=== PATIENT | female | born 1975 | race Caucasian/White ===

== ENCOUNTER 2023-04-06 12:40 | Outpatient (AMB) | payer OTHER, SELFPAY ==
[2023-04-06 13:00] VITALS: BP 130/82; PULSE 78; O2SAT 96; BMI 38.0
--- NOTE | 2023-04-06 13:00 | MHC.PC.OV ---
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 Past medical history significant for EVELIA. Patient reports for the past 3-4 weeks has been feeling a lot of anxiety,feels like she crawling out of her skin, 1 year ago had a panic attack. Patient has never taken medication for anxiety or seen therapist. Patient also states previously on Wellbutrin 150 mg daily for smoking sensation and she was able to quit smoking for 3 months, however she started smoking and when she was unable to get more this. Patient requesting to start back on Wellbutrin RX sent to patients pharmacy. Patient also reports that when she coughs, sneezes or walks quickly she will pee. Patient states had 3 vaginal deliveries. Patient advised to decrease caffeine consumption, recommended smoking cessation and weight loss. Patient states she had tried when she quit smoking for 3 months stop drinking caffeine and it did not help her symptoms. Pap smear: referral, women requested. Colonoscopy: GI referral entered Mammogram: overdue. Eye exam: 2 years ago. Previous patient Michael in [place]; 4 years ago. [facility] Medical History (Updated 04/06/23 @ 15:31 by AMAURI Sun) Iron deficiency anemia Surgical History (Updated 04/06/23 @ 13:15 by AMAURI Sun) Hx of cholecystectomy Family History (Updated 04/06/23 @ 13:18 by AMAURI Sun) Mother Blood clotting disorder Father Prostate cancer Brother No problems noted. Sister No problems noted. Social History Housing: Apartment Alcohol intake: current Alcohol intake frequency: a few times a week Alcohol type: hard liquor Patient Tobacco Use Status: Current everyday Tobacco user Cigarette Packs Per Day: 1 service: No Current occupational status: employed Cognitive needs: No Hearing needs: No Vision needs: No Questionnaire Thrive Questionnaire Date Thrive assessed: 04/06/23 I am a: Patient What is your living situation today?: I have a steady place to live Within the past 12 months, did the food you bought not last and you didn't have the money to get more?: Never true Within the past 12 months, did you worry whether your food would run out before you got money to buy more?: Never true Do you have trouble paying for medicines?: No Do you have trouble getting transportation to medical appointments?: No Do you have trouble paying your heating and electricity bill?: No Do you have trouble taking care of your child, family member or friend?: No Do you have trouble with day-to-day activities such as bathing, preparing meals, shopping, managing finances, etc.?: No Are you currently unemployed and looking for a job?: No Are you interested in more education?: No AUDIT C Alcohol Use Questionnaire (AUDIT-C) 1. How often do you have a drink containing alcohol?: 2-3 times a week 2. How many drinks containing alcohol do you have on a typical day when you are drinking?: 3 or 4 3. How often do you have six or more drinks on one occasion?: Never Total Score: 4 MATIAS-7 AMB Questionnaire MATIAS-7 Date MATIAS - 7 assessed: 04/06/23 Feeling nervous, anxious, or on edge: 1 = Several days Not being able to stop or control worryin = More than half the days Worrying too much about different things: 1 = Several days Trouble relaxin = More than half the days Being so restless that it is hard to sit still: 3 = Nearly every day Becoming easily annoyed or irritable: 0 = Not at all Feeling afraid as if something awful might happen: 0 = Not at all Total MATIAS-7 score (0-4 normal; 5-9 mild; 10-14 moderate; 15-21 severe): 9 Source: Developed by Drs. Hugo Robertson, Ashley Otero, Mark Conroy and colleagues, with an educational robert from [employer]. MATIAS-7 Assessment Billing MATIAS-7 Assessment Tool: MATIAS-7 Assessment 63476 Review of Systems Const Denies chills, Denies fatigue, Denies fever(s) and Denies poor appetite Eyes Denies no additional complaints ENT Reports Normal hearing present Card Denies chest pain, Denies syncope, Denies rapid heart rate and Denies dyspnea Resp Denies cough and Denies dyspnea GI Denies change in stool character, Denies constipation, Denies diarrhea, Denies nausea and Denies vomiting Denies urinary frequency, Denies dysuria and Denies urinary urgency Neuro Reports Normal hearing present, Denies confusion and Denies syncope Psych Denies confusion Endo Denies fatigue Physical exam (Primary Care) Vital Signs: Last Vital Signs Pulse 78 04/06/23 13:00 BP 130/82 04/06/23 13:00 Pulse Ox 96 04/06/23 13:00 Oxygen Delivery Method Room Air 04/06/23 13:00 BMI result Body Mass Index 38.0 Tobacco/Smoking Status: Tobacco use Status Tobacco use date assessed 04/06/23 04/06/23 13:07 Patient Tobacco Use Status Current everyday Tobacco 04/06/23 13:21 Thrive Assessment: Date of Thrive Assessment Date Thrive assessed 04/06/23 04/06/23 13:07 Const General: No confusion Orientation/consciousness: No confusion HENMT Head: Yes normocephalic and Yes atraumatic Ears: external ears normal and TM's normal bilaterally General nose exam: Normal external nose present and Normal nasal mucous membranes and turbinates present Face and sinus: Yes normal facial exam and Yes sinuses nontender Mouth: moist mucous membranes Throat: Yes tonsils normal Eyes Conjunctivae: conjunctivae normal Sclerae: sclerae normal Pupils: Equal, round and reactive pupils present and Pupils normal by confrontation EOM: EOMs intact bilaterally Direct Ophthalmoscopy: normal light reflex Neck Neck: Yes no lymphadenopathy and Yes supple Thyroid: Thyroid normal Chest Chest palpation & inspection: normal inspection of the chest Resp Effort & Inspection: normal respiratory effort Auscultation: clear to auscultation bilaterally, no crackles, no rhonchi and no wheezes Cardio Rate: regular rate Rhythm: regular rhythm Peripheral pulses: radial pulses present and dorsalis pedis present GI Inspection: Yes normal to inspection Palpation (GI): Soft to palpation, nontender and No hepatosplenomegaly present Auscultation: normoactive bowel sounds Skin General skin exam: no rashes or lesions noted Neuro General: No confusion Cranial nerves: Yes Equal, round and reactive pupils present and Yes Normal hearing present Cognition (Neuro): normal cognition Gait exam (Neuro): Normal gait present Motor exam (neuro): 5/5 motor strength present throughout Deep tendon reflexes (DTR's): Right brachioradialis reflex intensity grade: 2+, Left brachioradialis reflex intensity grade: 2+, Right patellar reflex intensity grade: 2+ and Left patellar reflex intensity grade: 2+ Extrem General: No edema Assessment and Plan Assessment & Plan (1) Stress incontinence: Code(s): N39.3 - Stress incontinence (female) (male) Plan: Referral entered to urology for further evaluation and treatment. Patient advised on quitting smoking, restricting caffeine intake and diet and exercise to promote weight loss. (2) Anxiety: Code(s): F41.9 - Anxiety disorder, unspecified Plan: Referral placed to counseling. (3) Cigarette smoker motivated to quit: Code(s): F17.210 - Nicotine dependence, cigarettes, uncomplicated Plan: Patient requesting to start back on Wellbutrin 150 mg q.a.m. that she had previously lb that was effective for her. Prescription sent to patient's pharmacy. (4) Iron deficiency anemia: Code(s): D50.9 - Iron deficiency anemia, unspecified Plan: CBC ordered to follow-up patient's history of anemia. (5) Obesity (BMI 30-39.9): Code(s): E66.9 - Obesity, unspecified Plan: Recommended exercise to reduce BMI. (6) Physical exam, annual: Code(s): Z00.00 - Encounter for general adult medical examination without abnormal findings Plan: Follow-up in 1 year for physical exam. Orders: Orders Comprehensive [place]. Panel Fast Today Z13.1 - Encounter for screening for diabetes mellitus Lipid Panel Today Z13.220 - Encounter for screening for lipoid disorders TSH reflex Free T4 Today Z13.29 - Encounter for screening for other suspected endocrine disorder Vitamin D 25-OH Total Today Z13.21 - Encounter for screening for nutritional disorder Complete Blood Count Auto Diff Today Z13.0 - Encounter for screening for diseases of the blood and blood-forming organs and certain disorders involving the immune mechanism Referrals Urology Referral N39.3 - Stress incontinence (female) (male) Counseling Referral F41.9 - Anxiety disorder, unspecified Gastroenterology Referral Z12.11 - Encounter for screening for malignant neoplasm of colon 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
== END 2023-04-06 13:57 | disposition home or self-care (01) ==
PROVIDERS: PCP Nurse Practitioner Family; Visit Provider Nurse Practitioner Family
DX: Z00.00 Encounter for general adult medical examination without abnormal findings (principal); N39.3 Stress incontinence (female) (male); F41.9 Anxiety disorder, unspecified; F17.210 Nicotine dependence, cigarettes, uncomplicated; D50.9 Iron deficiency anemia, unspecified; E66.9 Obesity, unspecified
CPT/HCPCS: 99386

== ENCOUNTER 2023-05-15 14:28 | Outpatient (AMB) | payer OTHER, SELFPAY ==
--- NOTE | 2023-05-15 14:35 | MHC.OFFVIS ---
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 Moffett. She presents to the office today as a new patient for stress urinary incontinence. In discussion with the patient today she reports to be doing and feeling well. She discusses noting worsening stress incontinence over the last few months. When asked she reports stress incontinence with increased activity, coughing, and or sneezing. She otherwise denies nocturia, hematuria, dysuria, foul smelling urine, changes to urinary stream, flank pain, fever, and or chills. In office urinalysis results reviewed with the patient today. Microscopic hematuria noted. In discussion with the patient today she does report 30 year cigarette smoking history. She reports attempting to quit smoking cigarettes earlier last year for approximately 3 months however continues to smoke. She denies any known chemical exposure. She reports smoking approximately 1 pack of cigarettes per day. She also endorses to drinking 1-2 cups of coffee daily. When asked she does report having past medical history of 3 vaginal births of average sized babies and somewhat long labors. Discussed at length potential causes for microscopic hematuria as well as stress incontinence. Discussed at length pelvic floor therapy with vaginal weights as well as further microscopic hematuria workup with cytology, CT urogram, and in office cystoscopy. PVR 49 mL's. [facility] Medical History Iron deficiency anemia Surgical History Hx of cholecystectomy Family History Mother Blood clotting disorder Father Prostate cancer Brother No problems noted. Sister No problems noted. Social History Housing: Apartment Alcohol intake: current Alcohol intake frequency: a few times a week Alcohol type: hard liquor Patient Tobacco Use Status: Current everyday Tobacco user Cigarette Packs Per Day: 1 service: No Current occupational status: employed Cognitive needs: No Hearing needs: No Vision needs: No Review of Systems Const All systems reviewed & are unremarkable except as noted in HPI and below Physical Exam Const General: cooperative, healthy appearing, comfortable, no acute distress, well developed, alert and awake Orientation/consciousness: patient oriented x3 Limitations: no limitations HEENT Head: Yes normal to inspection, Yes normocephalic and Yes atraumatic Ears: hearing grossly normal bilaterally Eyes General: appearance normal, both eyes and all related structures Neck Neck: Yes normal visual inspection and Yes trachea midline Chest Chest palpation & inspection: normal inspection of the chest Resp Effort & Inspection: normal respiratory effort and able to speak in complete sentences Cardio Rate: regular rate GI Inspection: Yes normal to inspection General: Yes no CVA tenderness Back/Spine/Pelvis Back: no CVA tenderness Skin General skin exam: no rashes or lesions noted Neuro General: patient oriented x3 Extrem General: Yes normal to inspection Psych Appearance: grossly normal and well kempt Mental Status: mental status grossly normal Speech and movement: Normal speech and movement present and Clear speech present Affect: normal affect Attitude: cooperative Thought process: Normal thought process present Thought content: Normal thought content present Insight: Good insight present (Psych) Judgement: Good judgement present (Psych) Office Procedures Post Void Residual Post Residual Void Post Void Residual (PVR): 49 [id number]-[id number] Void Residual by ultrasound Results AMB Urinalysis, Automated UA Leukoctes 0 Brando/uL Last Edit by Juan ManuelJeds [employer]be[employer] and [employer] Irving on 05/15/23 15:01 UA Nitrite Last Edit by Ashlie Irving on 05/15/23 15:01 UA Urobilinogen 0.2 mg/dL Last Edit by [employer] Irving on 05/15/23 15:01 UA Protein 0 mg/dL Last Edit by [employer] Irving on 05/15/23 15:01 UA pH 6.0 Last Edit by Ashlie Irving on 05/15/23 15:01 UA Blood 200 Navi/uL Last Edit by Ashlie Irving on 05/15/23 15:01 UA Specific Emblem 1.020 Last Edit by Juan ManuelJeds Barbeque and [employer] Irving on 05/15/23 15:01 UA Ketone Negative Last Edit by Ashlie Irving on 05/15/23 15:01 UA Bilirubin 0 mg/dL Last Edit by Ashlie Irving on 05/15/23 15:01 UA Glucose 0 mg/dL Last Edit by Ashlie Irving on 05/15/23 15:01 Results Reviewed Results Reviewed: Laboratory Last Values Urine pH (Auto) 6.0 05/15/23 14:56 Specific Emblem (Auto) 1.020 05/15/23 14:56 Urine Protein (Auto) 0 mg/dL 05/15/23 14:56 Glucose (UA)(Auto) 0 mg/dL 05/15/23 14:56 Urine Ketones (Auto) Negative 05/15/23 14:56 Urine Blood (Auto) 200 Navi/uL 05/15/23 14:56 Urine Bilirubin (Auto) 0 mg/dL 05/15/23 14:56 Urine Urobilinogen (Auto) 0.2 mg/dL 05/15/23 14:56 Leukocyte Esterase (Auto) 0 Brando/uL 05/15/23 14:56 Assessment & Plan Assessment & Plan (1) Microscopic hematuria: Code(s): R31.29 - Other microscopic hematuria (2) Nicotine dependence: Code(s): F17.200 - Nicotine dependence, unspecified, uncomplicated (3) Stress incontinence: Code(s): N39.3 - Stress incontinence (female) (male) Plan In office urinalysis results reviewed with the patient today; as noted above; will send for urine cytology. Discussed at length potential causes for stress incontinence as well as microscopic hematuria. Discussed obtaining CT urogram and in office cystoscopy for further assessment evaluation. CT urogram ordered. BUN and creatinine ordered for imaging. Patient discusses she will think about in office cystoscopy; however declines at this time. Discussed at length pelvic floor therapy and vaginal weights; information provided Information provided on microscopic hematuria and an office cystoscopy All questions were answered Discussed and stressed the importance of limiting/quitting smoking for overall health and well-being. Discussed importance of daily activity in weight management for improvement in stress incontinence as well as overall health and well-being. Follow-up in 4-6 weeks with imaging to be completed prior; or sooner with any issues, concerns, and or questions. Orders: Orders AMB Post Void Residual by ultrasound Today N39.3 - Stress incontinence (female) (male) Urine Cytology Today N39.3 - Stress incontinence (female) (male) AMB Urinalysis Automated Today Z13.9 - Encounter for screening, unspecified CT urogram Today R31.0 - Gross hematuria Blood Urea Nitrogen Today F17.200 - Nicotine dependence, unspecified, uncomplicated, R31.29 - Other microscopic hematuria Creatinine Today F17.200 - Nicotine dependence, unspecified, uncomplicated, R31.29 - Other microscopic hematuria Patient Instructions: The patient had an opportunity to ask questions regarding the treatment plan. All questions were answered. Physical exam, labs, and imaging were discussed and reviewed in detail. As well as risks, benefits, and discussion of treatment choices. No major barriers to understanding were identified. The patient expressed understanding and agreement with the above treatment plan. The patient was made aware they should contact our office by phone for worsening of their current condition, the appearance of new symptoms, or with any questions or concerns. Compliance is encouraged with any medications and follow up testing that is ordered. It is a privilege to be allowed the opportunity to participate in? your urological care.? Again, if you have any questions or concerns If you have any questions or concerns please do not hesitate to contact me. The office is [phone]. This note is constructed using voice recognition software. While every effort has been made to ensure accuracy rehabilitation services aide errors may have been included. Yours sincerely, AMAURI Fields-COREEN Coding Level of Care Code New Pt Level 3 (52334) Diagnoses Microscopic hematuria R31.29 Nicotine dependence F17.200 Stress incontinence N39.3 CPT Codes Post Residual Void - PVR CPT Code: 88722-Rcsm Void Residual by ultrasound ([id number])
== END 2023-05-15 15:40 | disposition home or self-care (01) ==
PROVIDERS: PCP Nurse Practitioner Family; Visit Provider Nurse Practitioner Family
DX: R31.29 Other microscopic hematuria (principal); F17.200 Nicotine dependence, unspecified, uncomplicated; N39.3 Stress incontinence (female) (male)
CPT/HCPCS: 99203

== ENCOUNTER 2023-05-15 14:28 | Outpatient (REF) | payer OTHER, SELFPAY ==
[2023-05-15 16:53] LABS: Urine Cytology See Pathology rpt
[2023-05-15 17:51] LABS: Blood Urea Nitrogen 7 mg/dL (9-16); Estimated Glomerular Filt Rate > 60
== END 2023-05-15 14:29 | disposition home or self-care (01) ==
LOC: HO.LNP 14:28
PROVIDERS: PCP Nurse Practitioner Family; Visit Provider Nurse Practitioner Family
DX: R31.29 Other microscopic hematuria (principal); N39.3 Stress incontinence (female) (male); F17.200 Nicotine dependence, unspecified, uncomplicated
CPT/HCPCS: 51798; 81003; 82565; 84520; 88112

== ENCOUNTER 2023-05-15 15:52 | Outpatient (REF) | payer OTHER, SELFPAY | END 2023-05-15 15:53 | disposition home or self-care (01) | LOC: HO.LAB 15:52 | PROVIDERS: PCP Nurse Practitioner Family; Visit Provider Nurse Practitioner Family | DX: Z13.89 Encounter for screening for other disorder (principal) ==

== ENCOUNTER 2023-06-02 07:24 | Outpatient (REF) | payer OTHER, SELFPAY ==
[2023-06-02 07:43] LABS: MANUAL DIFF FLAG NO
[2023-06-02 08:19] LABS: Basophils Absolute Auto 0.1 X10*3/uL (0.0-0.2); Basophils Percent Auto 0.9 % (0-2); Eosinophils Absolute Auto 0.3 X10*3/uL (0.0-0.4); Eosinophils Percent Auto 4.5 % (0-4); Hematocrit 41.7 % (37.0-47.0); Imm Gran Abs Auto 0.02 X10*3/uL (0.00-0.03); Imm Gran Pct Auto 0.3 % (0.0-0.4); Lymphocytes Absolute Auto 2.3 X10*3/uL (1.2-4.9); Lymphocytes Percent Auto 34.6 % (20-40); Mean Corpuscular HGB Conc 31.2 g/dl (31.0-35.0); Mean Corpuscular Hemoglobin 28.7 pg (27.0-33.0); Mean Corpuscular Volume 92.1 fL (80.0-98.0); Monocytes Absolute Auto 0.6 X10*3/uL (0.1-1.2); Monocytes Percent Auto 8.4 % (2-11); Neutrophils Absolute Auto 3.4 x10*3/uL (2.0-8.3); Neutrophils Percent Auto 51.3 % (45-73); Platelet Count 299 X10*3/uL (160-400); Red Blood Count 4.53 X10*6/uL (4.20-5.50); White Blood Count 6.7 X10*3/uL (4.8-10.8)
[2023-06-02 08:49] LABS: Alanine Aminotransferase 27 U/L (0-31); Albumin Level 3.9 g/dL (3.5-5.0); Alkaline Phosphatase 96 U/L (39-117); Anion Gap 15 (12-20); Aspartate Amino Transferase 22 U/L (5-31); Bilirubin Total 0.3 mg/dL (0.0-1.0); Blood Urea Nitrogen 9 mg/dL (9-16); Calcium 9.4 mg/dL (8.4-10.2); Carbon Dioxide 24 mmol/L (22-29); Chloride 106 mmol/L (96-108); Cholesterol 219 mg/dL (<200); Estimated Glomerular Filt Rate > 60; Glucose Fasting 107 mg/dL (60-99); HDL Cholesterol 54 mg/dL (>40); LDL Cholesterol Calculated 136 mg/dL (<100); Potassium 4.7 mmol/L (3.3-5.1); Sodium 140 mmol/L (135-145); Total Protein 7.2 g/dL (6.5-8.0); Triglycerides 147 mg/dL (<150)
[2023-06-02 09:04] LABS: TSH reflex Free T4 5.47 uIU/mL (0.32-4.0); Vitamin D 25-OH Total 25.7 ng/mL (>30)
[2023-06-02 09:44] LABS: Free T4 (Free Thyroxine) 0.83 ng/dL (0.71-1.85)
== END 2023-06-02 07:25 | disposition home or self-care (01) ==
LOC: HO.LAB 07:24
PROVIDERS: PCP Nurse Practitioner Family; Visit Provider Nurse Practitioner Family
DX: Z13.0 Encounter for screening for diseases of the blood and blood-forming organs and certain disorders involving the immune mechanism (principal); Z13.29 Encounter for screening for other suspected endocrine disorder; Z13.21 Encounter for screening for nutritional disorder; Z13.220 Encounter for screening for lipoid disorders; E78.49 Other hyperlipidemia; R94.6 Abnormal results of thyroid function studies; D50.9 Iron deficiency anemia, unspecified
CPT/HCPCS: 36415; 80053; 80061; 82306; 84439; 84443; 85025

== ENCOUNTER 2023-06-13 14:56 | Outpatient (REF) | payer OTHER, SELFPAY ==
--- NOTE | ~2023-06-13 | CT_ITS ---
EXAMINATION: CT UROGRAM WITHOUT AND WITH CONTRAST CLINICAL INFORMATION: Gross hematuria. COMPARISON: No pertinent prior examinations are available for comparison. TECHNIQUE: Noncontrast helical scanning was performed with submillimeter collimation through the abdomen and pelvis. Postcontrast helical scanning was then repeated with submillimeter collimation through the abdomen and pelvis in the pyelographic/urographic phase using split dose technique with 100 mL of Omnipaque 350 intravenous contrast. Sagittal and coronal 2-D reconstructions were obtained. This CT examination was performed using dose optimization techniques as appropriate, variously including the following: *Automated exposure control *Adjustment of mA and/or kV according to patient size (this includes techniques or standardized protocols for targeted exams where dose is matched to indication/reason for exam; i.e. extremities or head) *Use of iterative reconstruction technique DLP: 1173.87 mGy-cm mGycm FINDINGS: KIDNEYS, URETERS, BLADDER: Specific attention was given to the kidneys, ureters, and bladder. The right kidney measures 10.0 cm in size and the left kidney measures 10.9 cm in size. NONCONTRAST: No nephrolithiasis. No ureterolithiasis POSTCONTRAST NEPHROGRAPHIC/UROGRAPHIC: Symmetric nephrograms. No renal mass. Symmetric urinary excretion. No filling defects in the collecting systems or ureters. BLADDER: No bladder calculus. No discrete bladder mass. PELVIC VISCERA: The uterus appears bulky which may relate to underlying fibroid disease. Physiologic cysts are seen in the ovaries. No follow-up imaging is recommended. Nabothian cyst in the cervix. OTHER: LUNG BASES: The visualized lung bases are unremarkable. LIVER, GALLBLADDER, AND BILIARY TREE: Mild hepatic steatosis. No discrete liver mass or ductal dilatation. Cholecystectomy. PANCREAS: No discrete pancreatic mass or pancreatic ductal dilatation. SPLEEN: Normal size spleen. ADRENAL GLANDS: No adrenal mass. GASTROINTESTINAL TRACT: The small and large bowel are normal in caliber. No mesenteric mass or fluid. The appendix appears normal. There is mild colonic diverticulosis in the sigmoid area no evidence of diverticulitis. ABDOMINAL WALL: No significant hernia is appreciated. LYMPH NODES: No lymphadenopathy. VASCULAR: No aortic aneurysm. OSSEOUS STRUCTURES: No suspicious osseous lesions. CT/CT urogram IMPRESSION: No explanation for hematuria. No nephrolithiasis or renal mass. Normal CT urogram. Hepatic steatosis. Mild sigmoid diverticulosis without diverticulitis. Bulky uterus suggesting underlying fibroids.
== END 2023-06-13 14:57 | disposition home or self-care (01) ==
LOC: HO.CT 14:56
PROVIDERS: PCP Nurse Practitioner Family; Visit Provider Nurse Practitioner Family
DX: R31.0 Gross hematuria (principal)
CPT/HCPCS: 74178; Q9967

== ENCOUNTER 2023-06-22 15:31 | Outpatient (AMB) | payer OTHER, SELFPAY ==
--- NOTE | 2023-06-22 15:33 | MHC.OFFVIS ---
Intake Vital Signs 06/22/23 15:34 Height 5 ft 2 in Weight 211 lb 10.3 oz BMI 38.7 BP 133/73 Blood Pressure Location Lt brachial Position Sitting Pulse 71 Intake Visit Reasons: Colonoscopy Screening Intake Note: Patient presents to in office visit today as a new patient for colonoscopy screening. CC: Patient reports doing well, denies having any GI symptoms. 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 She is referred by Anali Moffett of [facility] primary care. PMX Smoker - quit 1 mos ago Iron deficiency anemia Obesity Anxiety Stress incontinence Microscopic hematuria * SURGICAL HISTORY Cholecystectomy * ALLERGIES: NKDA * [facility] LABS: Laboratory Tests 06/02/23 07:42 WBC 6.7 Hgb 13.0 Hct 41.7 Plt Count 299 Estimated GFR > 60 Total Bilirubin 0.3 AST 22 ALT 27 Alkaline Phosphata se 96 TSH 5.47 H Free T4 0.83 TODAY'S VISIT This is her first colonoscopy. She denies any bowel or upper GI problems. She denies any cardiac or respiratory problems. There are no prior problems with anesthesia or sedation. No ID problems. There is no known FHX or crc or polyps, but her family does not talk about these things. [facility], [facility] Medical History Iron deficiency anemia Surgical History Hx of cholecystectomy Family History Mother Blood clotting disorder Breast cancer Father Prostate cancer Brother No problems noted. Sister No problems noted. Social History Housing: Apartment Alcohol intake: current Alcohol intake frequency: a few times a week Alcohol type: hard liquor Patient Tobacco Use Status: Former Tobacco user Cigarette Packs Per Day: 1 Non Cigarette Tobacco use how lon years Non Cigarette Tobacco use Quit date or years: quit about 2 months ago per PT service: No Current occupational status: employed Cognitive needs: No Hearing needs: No Vision needs: No Review of Systems Const Denies fatigue, Denies fever(s), Denies night sweats, Denies poor appetite and Denies weight loss ENT Reports Normal hearing present, Denies dental pain, Denies dysphagia, Denies hearing loss, Denies mouth pain, Denies odynophagia, Denies throat swelling, Denies tongue swelling and Reports other (Dentition adequate) Card Reports no additional complaints Resp Reports no additional complaints GI Denies abdominal pain, Denies melena, Denies bloating, Denies hematochezia, Denies constipation, Denies GI cramping, Denies dysphagia, Denies excessive flatus, Denies early satiety, Denies heartburn, Denies diarrhea, Denies nausea, Denies odynophagia, Denies vomiting and Denies hematemesis Skin/Breast Denies pruritus, Denies lesions, Denies rash and Denies jaundice Neuro Reports Normal hearing present and Denies Abnormal speech present Endo Denies fatigue Aller/Immun Denies throat swelling and Denies tongue swelling Physical Exam Vital Signs: Last Vital Signs Pulse 71 06/22/23 15:34 BP 133/73 06/22/23 15:34 BMI result Body Mass Index 38.7 Const General: cooperative, no acute distress, well developed and well groomed Nutritional Appearance: well nourished and obese morbidly obese Orientation/consciousness: oriented to person, oriented to place and oriented to time Limitations: No language barrier HEENT Head: Yes normocephalic and Yes atraumatic Eyes General: appearance normal, both eyes and all related structures Pupils: Equal, round and reactive pupils present Neck Neck: Yes normal visual inspection and Yes no lymphadenopathy Thyroid: Thyroid normal Resp Effort & Inspection: normal respiratory effort and able to speak in complete sentences Auscultation: clear to auscultation bilaterally Cardio Rate: regular rate Rhythm: regular rhythm Heart sounds: Normal, physiologic split S2 sound present Peripheral pulses: radial pulses present and posterior tibial pulses present GI Inspection: No distended, Yes Abdominal panniculus present and Yes obesity Palpation (GI): Soft to palpation, nontender, no guarding, not rigid and No hepatosplenomegaly present Percussion: Yes normal to percussion Auscultation: normal bowel sounds Rectal Exam - Female: deferred Skin General skin exam: no rashes or lesions noted, turgor normal, skin not dry, no jaundice, No spider nevi and no striae Rashes: no rashes Nails: normal Neuro General: oriented to person, oriented to place and oriented to time Cranial nerves: Yes Equal, round and reactive pupils present and Yes Normal hearing present Speech: No Abnormal speech present Extrem General: Yes normal to inspection, No clubbing, No cyanosis and No edema Psych Appearance: grossly normal and well kempt Mental Status: mental status grossly normal Speech and movement: Normal speech and movement present Affect: normal affect Attitude: cooperative Thought process: Normal thought process present and not confabulating Thought content: Normal thought content present Insight: Fair insight present (Psych) Judgement: Fair judgement present (Psych) Assessment & Plan Assessment & Plan (1) Pre-op examination: Code(s): Z01.818 - Encounter for other preprocedural examination Plan: This is her first colonoscopy. She denies any bowel or upper GI problems. She denies any cardiac or respiratory problems. There are no prior problems with anesthesia or sedation. No ID problems. There is no known FHX or crc or polyps, but her family does not talk about these things. Orders: Orders Colonoscopy - GI Use Only Today Z01.818 - Encounter for other preprocedural examination Medications: New peg 3350-electrolytes 236-22.74-6.74 -5.86 gram (Golytely) until fecal effluent is clear; do not exceed a total volume of 2,000 mL 240 mL PO Q10M 1 day 4,000 mL 0RF Z12.11 - Encounter for screening for malignant neoplasm of colon Coding Level of Care Code New Pt Level 3 (29137) Diagnoses Pre-op examination Z01.818
[2023-06-22 15:34] VITALS: BP 133/73; PULSE 71; BMI 38.7
== END 2023-06-22 16:09 | disposition home or self-care (01) ==
PROVIDERS: PCP Nurse Practitioner Family; Visit Provider Nurse Practitioner
DX: Z01.818 Encounter for other preprocedural examination (principal)
CPT/HCPCS: 99203

== ENCOUNTER → 2023-06-22 15:31 | Outpatient (BNVA) | payer OTHER, SELFPAY | PROVIDERS: PCP Nurse Practitioner Family; Visit Provider Nurse Practitioner ==

== ENCOUNTER 2023-06-26 15:29 | Outpatient (AMB) | payer OTHER, SELFPAY ==
--- NOTE | 2023-06-26 15:32 | MHC.OFFVIS ---
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 Moffett. She presents to the office today for a follow up. Of note, patient was seen approximately 6 weeks ago as a new patient for stress urinary incontinence at which time she was noted to have microscopic hematuria and reported a longstanding history of nicotine dependence therefore CT urogram was ordered for further assessment evaluation. These results reviewed with the patient today. Symmetric nephrograms. No renal mass. Symmetric urinary excretion. No filling defects in the collecting systems or ureters. The bladder with no bladder calculus or discrete bladder mass. No explanation for hematuria. No nephrolithiasis or renal mass. Normal CT urogram. In discussion with the patient today she reports to be doing and feeling well. She discusses noting worsening stress incontinence over the last few months. When asked she reports stress incontinence with increased activity, coughing, and or sneezing. She otherwise denies nocturia, hematuria, dysuria, foul smelling urine, changes to urinary stream, flank pain, fever, and or chills. She discusses since her last office visit here she has since stopped smoking cigarettes, marijuana, and drinking alcohol. Discussed at length in office cystoscopy for completion of microscopic hematuria workup however patient declines at this time. Discussed at length potential causes for lower urinary tract symptoms patient is experiencing. She has a history of 3 vaginal births of average sized babies and somewhat long labors. Discussed at length potential causes for microscopic hematuria as well as stress incontinence. Discussed at length pelvic floor therapy with vaginal weights. Patient reports since her last office visit here approximately 6 weeks ago she has been attending/performing yoga and walking regularly as she has felt she has had more energy to do things to take care of herself. In office urinalysis results reviewed with the patient today. PVR 6 mL. PFSH Medical History Iron deficiency anemia Surgical History Hx of cholecystectomy Family History Mother Blood clotting disorder Breast cancer Father Prostate cancer Brother No problems noted. Sister No problems noted. Social History Housing: Apartment Alcohol intake: current Alcohol intake frequency: a few times a week Alcohol type: hard liquor Patient Tobacco Use Status: Former Tobacco user Cigarette Packs Per Day: 1 service: No Current occupational status: employed Cognitive needs: No Hearing needs: No Vision needs: No Review of Systems Const All systems reviewed & are unremarkable except as noted in HPI and below Physical Exam Const General: cooperative, healthy appearing, comfortable, no acute distress, well developed, alert and awake Orientation/consciousness: patient oriented x3 Limitations: no limitations HEENT Head: Yes normal to inspection, Yes normocephalic and Yes atraumatic Ears: hearing grossly normal bilaterally Eyes General: appearance normal, both eyes and all related structures Neck Neck: Yes normal visual inspection and Yes trachea midline Chest Chest palpation & inspection: normal inspection of the chest Resp Effort & Inspection: normal respiratory effort and able to speak in complete sentences Cardio Rate: regular rate GI Inspection: Yes normal to inspection General: Yes no CVA tenderness Back/Spine/Pelvis Back: no CVA tenderness Skin General skin exam: no rashes or lesions noted Neuro General: patient oriented x3 Extrem General: Yes normal to inspection Psych Appearance: grossly normal and well kempt Mental Status: mental status grossly normal Speech and movement: Normal speech and movement present and Clear speech present Affect: normal affect Attitude: cooperative Thought process: Normal thought process present Thought content: Normal thought content present Insight: Good insight present (Psych) Judgement: Good judgement present (Psych) Office Procedures Post Void Residual Post Residual Void Post Void Residual (PVR): [id number] Void Residual by ultrasound Results AMB Urinalysis, Automated UA Leukoctes 0 Brando/uL Last Edit by Ashlie Irving on 06/26/23 16:09 UA Nitrite Negative Last Edit by Ashlie Irving on 06/26/23 16:09 UA Urobilinogen 0.2 mg/dL Last Edit by Ashlie Irving on 06/26/23 16:09 UA Protein 0 mg/dL Last Edit by Ashlie Irving on 06/26/23 16:09 UA pH 6.0 Last Edit by Ashlie Irving on 06/26/23 16:09 UA Blood 10 Navi/uL Last Edit by Ashlie Irving on 06/26/23 16:09 UA Specific [place] 1.010 Last Edit by Ashlie Irving on 06/26/23 16:09 UA Ketone Negative Last Edit by Ashlie Irving on 06/26/23 16:09 UA Bilirubin 0 mg/dL Last Edit by Ashlie Irving on 06/26/23 16:09 UA Glucose 0 mg/dL Last Edit by Ashlie Irving on 06/26/23 16:09 Results Reviewed Results Reviewed: Laboratory Last Values Urine pH (Auto) 6.0 06/26/23 15:34 Specific [place] (Auto) 1.010 06/26/23 15:34 Urine Protein (Auto) 0 mg/dL 06/26/23 15:34 Glucose (UA)(Auto) 0 mg/dL 06/26/23 15:34 Urine Ketones (Auto) Negative 06/26/23 15:34 Urine Blood (Auto) 10 Navi/uL 06/26/23 15:34 Urine Nitrite (Auto) Negative 06/26/23 15:34 Urine Bilirubin (Auto) 0 mg/dL 06/26/23 15:34 Urine Urobilinogen (Auto) 0.2 mg/dL 06/26/23 15:34 Leukocyte Esterase (Auto) 0 Brando/uL 06/26/23 15:34 Date of Service: 06/13/23 EXAMINATION: CT UROGRAM WITHOUT AND WITH CONTRAST FINDINGS: KIDNEYS, URETERS, BLADDER: Specific attention was given to the kidneys, ureters, and bladder. The right kidney measures 10.0 cm in size and the left kidney measures 10.9 cm in size. NONCONTRAST: No nephrolithiasis. No ureterolithiasis POSTCONTRAST NEPHROGRAPHIC/UROGRAPHIC: Symmetric nephrograms. No renal mass. Symmetric urinary excretion. No filling defects in the collecting systems or ureters. BLADDER: No bladder calculus. No discrete bladder mass. PELVIC VISCERA: The uterus appears bulky which may relate to underlying fibroid disease. Physiologic cysts are seen in the ovaries. No follow-up imaging is recommended. Nabothian cyst in the cervix. OTHER: LUNG BASES: The visualized lung bases are unremarkable. LIVER, GALLBLADDER, AND BILIARY TREE: Mild hepatic steatosis. No discrete liver mass or ductal dilatation. Cholecystectomy. PANCREAS: No discrete pancreatic mass or pancreatic ductal dilatation. SPLEEN: Normal size spleen. ADRENAL GLANDS: No adrenal mass. GASTROINTESTINAL TRACT: The small and large bowel are normal in caliber. No mesenteric mass or fluid. The appendix appears normal. There is mild colonic diverticulosis in the sigmoid area no evidence of diverticulitis. ABDOMINAL WALL: No significant hernia is appreciated. LYMPH NODES: No lymphadenopathy. VASCULAR: No aortic aneurysm. OSSEOUS STRUCTURES: No suspicious osseous lesions. IMPRESSION: No explanation for hematuria. No nephrolithiasis or renal mass. Normal CT urogram. Hepatic steatosis. Mild sigmoid diverticulosis without diverticulitis. Bulky uterus suggesting underlying fibroids. Assessment & Plan Assessment & Plan (1) Microscopic hematuria: Code(s): R31.29 - Other microscopic hematuria (2) Stress incontinence: Code(s): N39.3 - Stress incontinence (female) (male) (3) Nicotine dependence: Code(s): F17.200 - Nicotine dependence, unspecified, uncomplicated Plan In office urinalysis results reviewed with the patient today; will send for urine cytology PVR 6 mL Patient reports she has since stopped smoking cigarettes; encouragement and reassurance provided Recent CT results reviewed with the patient today; as noted above. Discussed in office cystoscopy for further workup of microscopic hematuria however patient declines at this time. Discussed at length potential causes for microscopic hematuria as well as lower urinary tract symptoms patient is experiencing. Continue pelvic floor exercises as discussed. Start oxybutynin as discussed and prescribed. Discussed, educated, encouraged on the importance of drinking plenty of water daily. Discussed possible near future urodynamics for further assessment evaluation Follow-up in 6 weeks with PVR; or sooner with any issues, concerns, and or questions. Orders: Orders Urine Cytology Today R31.29 - Other microscopic hematuria AMB Urinalysis Automated Today Z13.9 - Encounter for screening, unspecified AMB Post Void Residual by ultrasound Today N39.3 - Stress incontinence (female) (male) Medications: New oxybutynin chloride ER 10 mg PO DAILY 30 days 30 tabs 1RF N32.81 - Overactive bladder Patient Instructions: The patient had an opportunity to ask questions regarding the treatment plan. All questions were answered. Physical exam, labs, and imaging were discussed and reviewed in detail. As well as risks, benefits, and discussion of treatment choices. No major barriers to understanding were identified. The patient expressed understanding and agreement with the above treatment plan. The patient was made aware they should contact our office by phone for worsening of their current condition, the appearance of new symptoms, or with any questions or concerns. Compliance is encouraged with any medications and follow up testing that is ordered. It is a privilege to be allowed the opportunity to participate in? your urological care.? Again, if you have any questions or concerns If you have any questions or concerns please do not hesitate to contact me. The office is [phone]. This note is constructed using voice recognition software. While every effort has been made to ensure accuracy torch straightener and heater errors may have been included. Yours sincerely, THAO Fields Coding Level of Care Code Est Pt Level 4 (82108) Diagnoses Microscopic hematuria R31.29 Stress incontinence N39.3 Nicotine dependence F17.200 CPT Codes Post Residual Void - PVR CPT Code: 36310-Tbkk Void Residual by ultrasound ([id number])
== END 2023-06-26 16:30 ==
PROVIDERS: PCP Nurse Practitioner Family; Visit Provider Nurse Practitioner Family
DX: R31.29 Other microscopic hematuria (principal); N39.3 Stress incontinence (female) (male); F17.200 Nicotine dependence, unspecified, uncomplicated
CPT/HCPCS: 99214

== ENCOUNTER 2023-06-26 15:29 | Outpatient (REF) | payer OTHER, SELFPAY ==
[2023-06-26 17:10] LABS: Urine Cytology See Pathology rpt
== END 2023-06-26 15:30 | disposition home or self-care (01) ==
LOC: HO.LNP 15:29
PROVIDERS: PCP Nurse Practitioner Family; Visit Provider Nurse Practitioner Family
DX: R31.29 Other microscopic hematuria (principal)
CPT/HCPCS: 51798; 81003; 88112

== ENCOUNTER 2023-08-07 13:26 | Outpatient (AMB) | payer OTHER, SELFPAY ==
--- NOTE | 2023-08-07 13:29 | A.OFFVIS_ITS ---
Intake Intake Visit Reasons: 6w/PVR Intake Note: Patient presents for follow up visit for stress incontinence Urology Medications: oxybutynin Blood Thinner: none PVR: 0ml's Human Resources Representative Required: No Accompanied by: Self / Same As Patient Allergies No Known Allergies Allergy (Verified 08/08/23 01:14) Medication List - Last Reconciled 08/08/23 by AMAURI Fields- bupropion HCl (Wellbutrin SR) 150 mg PO QAM mirabegron ER (Myrbetriq) 25 mg PO DAILY 30 days peg 3350-electrolytes 236-22.74-6.74 -5.86 gram (Golytely) 240 mL PO Q10M 1 day HPI HPI Comments History of Present Illness Details Maria C is a very pleasant 48-year-old female patient of Dr. Moffett. She presents to the office today for a follow up. Of note, patient was seen approximately 6 weeks ago at which time she was started on 10 mg of oxybutynin for lower urinary tract symptoms. She also has a history of microscopic hematuria at which time a CT urogram was ordered and recommendations were made for in office cystoscopy given longstanding history of nicotine dependence however patient declines. CT noted symmetric nephrograms. No renal mass. Symmetric urinary excretion. No filling defects in the collecting systems or ureters. The bladder with no bladder calculus or discrete bladder mass. No explanation for hematuria. No nephrolithiasis or renal mass. Normal CT urogram. In discussion with the patient today she reports to be doing and feeling well. She mild improvement lower urinary tract symptoms on 10 mg of oxybutynin however felt it also made her constipated. She reports to have started lifestyle modifications and has quit smoking over the last 3 months and is working out. She discusses her recent divorce. When asked she reports stress incontinence with increased activity, coughing, and or sneezing. She otherwise denies nocturia, hematuria, dysuria, foul smelling urine, changes to urinary stream, flank pain, fever, and or chills. Discussed at length in office cystoscopy for completion of microscopic hematuria workup however patient declines at this time. Discussed at length potential causes for lower urinary tract symptoms patient is experiencing. She has a history of 3 vaginal births of average sized babies and somewhat long labors. Discussed at length potential causes for microscopic hematuria as well as stress incontinence. Discussed at length pelvic floor therapy with vaginal weights. In office urinalysis results reviewed with the patient today. PVR 0ml's PFSH Medical History Iron deficiency anemia Surgical History Hx of cholecystectomy Family History Mother Blood clotting disorder Breast cancer Father Prostate cancer Brother No problems noted. Sister No problems noted. Social History Housing: Apartment Alcohol intake: current Alcohol intake frequency: a few times a week Alcohol type: hard liquor Patient Tobacco Use Status: Former Tobacco user Cigarette Packs Per Day: 1 service: No Current occupational status: employed Cognitive needs: No Hearing needs: No Vision needs: No Review of Systems Const All systems reviewed & are unremarkable except as noted in HPI and below Physical Exam Const General: cooperative, healthy appearing, comfortable, no acute distress, well developed, alert and awake Orientation/consciousness: patient oriented x3 Limitations: no limitations HEENT Head: Yes normal to inspection, Yes normocephalic and Yes atraumatic Ears: hearing grossly normal bilaterally Eyes General: appearance normal, both eyes and all related structures Neck Neck: Yes normal visual inspection and Yes trachea midline Chest Chest palpation & inspection: normal inspection of the chest Resp Effort & Inspection: normal respiratory effort and able to speak in complete sentences Cardio Rate: regular rate GI Inspection: Yes normal to inspection General: Yes no CVA tenderness Back/Spine/Pelvis Back: no CVA tenderness Skin General skin exam: no rashes or lesions noted Neuro General: patient oriented x3 Extrem General: Yes normal to inspection Psych Appearance: grossly normal and well kempt Mental Status: mental status grossly normal Speech and movement: Normal speech and movement present and Clear speech present Affect: normal affect Attitude: cooperative Thought process: Normal thought process present Thought content: Normal thought content present Insight: Good insight present (Psych) Judgement: Good judgement present (Psych) Results AMB Urinalysis, Automated UA Leukoctes 0 Brando/uL Last Edit by Ashlie Irving on 08/07/23 14:25 UA Nitrite Negative Last Edit by Ashlie Irving on 08/07/23 14:25 UA Urobilinogen 0.2 mg/dL Last Edit by Ashlie Irving on 08/07/23 14:25 UA Protein 0 mg/dL Last Edit by Ashlie Irving on 08/07/23 14:25 UA pH 5.5 Last Edit by Ashlie Irving on 08/07/23 14:25 UA Blood 25 Navi/uL Last Edit by Ashlie Irving on 08/07/23 14:25 UA Specific [place] 1.015 Last Edit by Ashlie Irving on 08/07/23 14:25 UA Ketone Negative Last Edit by Ashlie Irving on 08/07/23 14:25 UA Bilirubin 0 mg/dL Last Edit by Ashlie Irving on 08/07/23 14:25 UA Glucose 0 mg/dL Last Edit by Ashlie Irving on 08/07/23 14:25 Results Reviewed Results Reviewed: Laboratory Last Values Urine pH (Auto) 5.5 08/07/23 13:33 Specific [place] (Auto) 1.015 08/07/23 13:33 Urine Protein (Auto) 0 mg/dL 08/07/23 13:33 Glucose (UA)(Auto) 0 mg/dL 08/07/23 13:33 Urine Ketones (Auto) Negative 08/07/23 13:33 Urine Blood (Auto) 25 Navi/uL 08/07/23 13:33 Urine Nitrite (Auto) Negative 08/07/23 13:33 Urine Bilirubin (Auto) 0 mg/dL 08/07/23 13:33 Urine Urobilinogen (Auto) 0.2 mg/dL 08/07/23 13:33 Leukocyte Esterase (Auto) 0 Brando/uL 08/07/23 13:33 Assessment & Plan Assessment & Plan (1) Stress incontinence: Code(s): N39.3 - Stress incontinence (female) (male) (2) Microscopic hematuria: Code(s): R31.29 - Other microscopic hematuria (3) Nicotine dependence: Code(s): F17.200 - Nicotine dependence, unspecified, uncomplicated Plan In office urinalysis results reviewed with the patient today; as noted above PVR 0mL Stop oxybutynin as discussed. Start Myrbetriq as discussed and prescribed. Patient reports being smoke free for over 3 months now; encouragement and reassurance provided Discussed in office cystoscopy for further workup of microscopic hematuria however patient declines at this time. Discussed at length potential causes for microscopic hematuria as well as lower urinary tract symptoms patient is experiencing. Continue pelvic floor exercises as discussed. Discussed, educated, encouraged on the importance of drinking plenty of water daily. Discussed possible near future urodynamics for further assessment evaluation Follow-up in 6 weeks with PVR; or sooner with any issues, concerns, and or questions. Orders: Orders AMB Urinalysis Automated 08/07/23 Z13.9 - Encounter for screening, unspecified Medications: New mirabegron ER (Myrbetriq) 25 mg PO DAILY 30 tabs 1RF 30 days N30.10 - Interstitial cystitis (chronic) without hematuria, N32.81 - Overactive bladder, R35.1 - Nocturia, R39.15 - Urgency of urination Discontinued oxybutynin chloride ER Discontinued Reason: Doctor's Order 10 mg PO DAILY 30 tabs 1RF 30 days N32.81 - Overactive bladder Patient Instructions: The patient had an opportunity to ask questions regarding the treatment plan. All questions were answered. Physical exam, labs, and imaging were discussed and reviewed in detail. As well as risks, benefits, and discussion of treatment choices. No major barriers to understanding were identified. The patient expressed understanding and agreement with the above treatment plan. The patient was made aware they should contact our office by phone for worsening of their current condition, the appearance of new symptoms, or with any questions or concerns. Compliance is encouraged with any medications and follow up testing that is ordered. It is a privilege to be allowed the opportunity to participate in? your urological care.? Again, if you have any questions or concerns If you have any questions or concerns please do not hesitate to contact me. The office is [phone]. This note is constructed using voice recognition software. While every effort has been made to ensure accuracy measurement specialist errors may have been included. Yours sincerely, THAO Fields Coding Level of Care Code Est Pt Level 4 (10460) Diagnoses Stress incontinence N39.3 Microscopic hematuria R31.29 Nicotine dependence F17.200
== END 2023-08-07 14:18 | disposition home or self-care (01) ==
PROVIDERS: PCP Nurse Practitioner Family; Visit Provider Nurse Practitioner Family
DX: N39.3 Stress incontinence (female) (male) (principal); R31.29 Other microscopic hematuria; F17.200 Nicotine dependence, unspecified, uncomplicated
CPT/HCPCS: 99214

== ENCOUNTER → 2023-08-07 13:26 | Outpatient (BNVA) | payer OTHER, SELFPAY | PROVIDERS: PCP Nurse Practitioner Family; Visit Provider Nurse Practitioner Family | DX: R31.29 Other microscopic hematuria (principal); N39.3 Stress incontinence (female) (male); Z87.891 Personal history of nicotine dependence | CPT/HCPCS: 81003 ==

== ENCOUNTER 2023-08-14 14:17 | Outpatient (AMB) | payer OTHER, SELFPAY ==
[2023-08-14 14:19] VITALS: BP 118/80; PULSE 79; O2SAT 99; BMI 37.0
--- NOTE | 2023-08-14 14:19 | A.OFFPC_ITS ---
Vital Signs 08/14/23 14:19 Height 5 ft 2 in Weight 202 lb 6 oz BMI 37.0 BP 118/80 Blood Pressure Location Lt brachial Position Sitting Pulse 79 Pulse Source Pulse Oximeter Pulse Oximetry (%) 99 Oxygen Delivery Method Room Air Intake Visit Reasons: anxiety smoking cessation Neurology Director Required: No Accompanied by: Self / Same As Patient Allergies No Known Allergies Allergy (Verified 08/14/23 14:23) Tobacco use date assessed: 04/06/23 Dental Screening Dental Screen Date: 08/14/23 Did you have a dental visit in the last 12 months?: No Did you have a dental problem in the last 6 months where you did not have access to dental care?: No Was dental information given to patient?: Patient has dentist HPI HPI Comments History of Present Illness Details 48-year-old female, Past medical history significant for EVELIA, Anxiety and smoker. Patient presents today for follow up appointment. Patient was previously started on Wellbutrin for smoking cessation. Patient reports has not smoked in 3 months and she feels her anxiety has improved on the medication, requesting refill. Rx Sent. Patient reports has been diet and exercising and has lost 8lbs. Patient following with urology for stress incontinence and was started on mybetriq for this. Patient reminded to get previously ordered fasting glucose completed. [facility]LY [facility] Medical History Iron deficiency anemia Surgical History Hx of cholecystectomy Family History Mother Blood clotting disorder Breast cancer Father Prostate cancer Brother No problems noted. Sister No problems noted. Social History Housing: Apartment Alcohol intake: current Alcohol intake frequency: a few times a week Alcohol type: hard liquor Patient Tobacco Use Status: Former Tobacco user Cigarette Packs Per Day: 1 service: No Current occupational status: employed Cognitive needs: No Hearing needs: No Vision needs: No Questionnaire PHQ-9 Over the last 2 weeks, how often have you been bothered by any of the following problems? 1. Little interest or pleasure in doing things: not at all 2. Feeling down, depressed, or hopeless: not at all 3. Trouble falling or staying asleep, or sleeping too much: not at all 4. Feeling tired or having little energy: not at all 5. Poor appetite or overeating: not at all 6. Feeling bad about yourself - or that you are a failure or have let yourself or your family down: not at all 7. Trouble concentrating on things, such as reading the newspaper or watching television: not at all 8. Moving or speaking so slowly that other people could have noticed. Or the opposite - being so fidgety or restless that you have been moving around a lot more than usual: not at all 9. Thoughts that you would be better off or of hurting yourself in some way: not at all Total score: 0 60497 - PHQ-9 Billing: Yes Source: Developed by Drs. Hugo Robertson, Ashley Otero, Mark Conroy and colleagues, with an educational robert from [employer]. Thrive Questionnaire Date Thrive assessed: 04/06/23 MATAIS-7 AMB Questionnaire MATIAS-7 Date MATIAS - 7 assessed: 04/06/23 Source: Developed by Drs. Hugo Robertson, Ashley Otero, Mark Conroy and colleagues, with an educational robert from [employer]. Review of Systems Const Denies chills, Denies fatigue, Denies fever(s) and Denies poor appetite Eyes Denies no additional complaints ENT Reports Normal hearing present Card Denies chest pain, Denies syncope, Denies rapid heart rate and Denies dyspnea Resp Denies cough and Denies dyspnea GI Denies change in stool character, Denies constipation, Denies diarrhea, Denies nausea and Denies vomiting Denies urinary frequency, Denies dysuria and Denies urinary urgency Neuro Reports Normal hearing present, Denies confusion and Denies syncope Psych Denies confusion Endo Denies fatigue Physical exam (Primary Care) Vital Signs: Last Vital Signs Pulse 79 08/14/23 14:19 BP 118/80 08/14/23 14:19 Pulse Ox 99 08/14/23 14:19 Oxygen Delivery Method Room Air 08/14/23 14:19 BMI result Body Mass Index 37.0 Tobacco/Smoking Status: Tobacco use Status Tobacco use date assessed 04/06/23 08/14/23 14:26 Patient Tobacco Use Status Former Tobacco user 08/14/23 14:26 PHQ-9: PHQ-9 Score PHQ-9: Total score 0 08/14/23 14:39 Thrive Assessment: Date of Thrive Assessment Date Thrive assessed 04/06/23 08/14/23 14:26 Const General: No confusion Orientation/consciousness: No confusion HENMT Head: Yes normocephalic and Yes atraumatic Eyes Conjunctivae: conjunctivae normal Chest Chest palpation & inspection: normal inspection of the chest Resp Effort & Inspection: normal respiratory effort Auscultation: clear to auscultation bilaterally, no crackles, no rhonchi and no wheezes Cardio Rate: regular rate Rhythm: regular rhythm Heart sounds: S1 normal heart sound present and S2 normal heart sound present GI Inspection: Yes normal to inspection Neuro General: No confusion Cranial nerves: Yes Normal hearing present Extrem General: No edema Assessment and Plan Assessment & Plan (1) Cigarette smoker motivated to quit: Code(s): F17.210 - Nicotine dependence, cigarettes, uncomplicated Plan: Continue on wellbutrin. Patient has not smoked in 3 months, Positive reinforcement given to continue to abstain from smoking. (2) Obesity (BMI 30-39.9): Code(s): E66.9 - Obesity, unspecified Plan: Continue to Diet and exercise to reduce BMI. (3) Borderline hyperlipidemia: Code(s): E78.5 - Hyperlipidemia, unspecified Plan: Reminded to get previously ordered fasting labs completed. Continue to follow low cholesterol diet. (4) Elevated fasting glucose: Code(s): R73.01 - Impaired fasting glucose Plan: HGB A1C ordered (5) Elevated TSH: Code(s): R79.89 - Other specified abnormal findings of blood chemistry Plan: reminded to get repeat TSH level completed. Plan Follow up in 3 months. Medications: Refilled bupropion HCl (Wellbutrin SR) 150 mg PO QAM 30 tabs 3RF Coding Level of Care Code Est Pt Level 4 (49011) Diagnoses Cigarette smoker motivated to quit F17.210 Obesity (BMI 30-39.9) E66.9 Borderline hyperlipidemia E78.5 Elevated fasting glucose R73.01 Elevated TSH R79.89
== END 2023-08-14 14:53 | disposition home or self-care (01) ==
PROVIDERS: PCP Nurse Practitioner Family; Visit Provider Nurse Practitioner Family
DX: E78.5 Hyperlipidemia, unspecified (principal); F17.210 Nicotine dependence, cigarettes, uncomplicated; E66.9 Obesity, unspecified; Z68.37 Body mass index [BMI] 37.0-37.9, adult; R73.01 Impaired fasting glucose; R79.89 Other specified abnormal findings of blood chemistry
CPT/HCPCS: 99214

== ENCOUNTER 2023-09-19 15:54 | Outpatient (AMB) | payer OTHER, SELFPAY ==
--- NOTE | 2023-09-19 15:10 | MHC.OFFVIS ---
Intake Intake Visit Reasons: 6w/PVR Intake Note: Patient presents for a follow up with PVR Urologic medications: Blood Allergies No Known Allergies Allergy (Verified 08/14/23 14:23) PFSH Medical History Iron deficiency anemia Surgical History Hx of cholecystectomy Family History Mother Blood clotting disorder Breast cancer Father Prostate cancer Brother No problems noted. Sister No problems noted. Social History Housing: Apartment Alcohol intake: current Alcohol intake frequency: a few times a week Alcohol type: hard liquor Patient Tobacco Use Status: Former Tobacco user Cigarette Packs Per Day: 1 service: No Current occupational status: employed Cognitive needs: No Hearing needs: No Vision needs: No Coding
--- NOTE | 2023-09-19 16:08 | A.OFFVIS_ITS ---
Intake Intake Visit Reasons: 6w/PVR Intake Note: Patient presents for follow up visit for stress incontinence Urology Medications: Myrbetriq Blood Thinner: none PVR: 38ml's Multimedia Instructional Designer Required: No Accompanied by: Self / Same As Patient Allergies No Known Allergies Allergy (Verified 09/19/23 20:04) Medication List - Last Reconciled 09/19/23 by THAO Fields bupropion HCl (Wellbutrin SR) 150 mg PO QAM mirabegron ER (Myrbetriq) 25 mg PO DAILY 30 days peg 3350-electrolytes 236-22.74-6.74 -5.86 gram (Golytely) 240 mL PO Q10M 1 day HPI HPI Comments History of Present Illness Details Maria C is a very pleasant 48-year-old female patient of Dr. Moffett. She presents to the office today for a follow up. Of note, patient was seen approximately 6 weeks ago at which time she was started 25 mg of Myrbetriq daily and her oxybutynin 10 mg daily was discontinued. In discussion with the patient today she reports to have not started Myrbetriq 25 mg daily as it requires prior authorization in this has not been completed yet. In review of patient's chart it appears prior authorization is still in process. This was discussed with the patient today. She discusses she continues with lower urinary tract symptoms of stress incontinence. She also has a history of microscopic hematuria at which time a CT urogram was ordered and recommendations were made for in office cystoscopy given longstanding history of nicotine dependence however patient declines. CT noted symmetric nephrograms. No renal mass. Symmetric urinary excretion. No filling defects in the collecting systems or ureters. The bladder with no bladder calculus or discrete bladder mass. No explanation for hematuria. No nephrolithiasis or renal mass. Normal CT urogram. In discussion with the patient today she reports to be doing and feeling well. Patient did report mild improvement lower urinary tract symptoms on 10 mg of oxybutynin however had issues with constipation and dry mouth. She discusses having lost approximately 30 lb and continues to attempt to lose more weight. She reports to be performing HIT interval training exercises as well as yoga. She discusses how she is up to approximately 5 minutes of running at a time. She discusses her recent divorce. She otherwise denies nocturia, hematuria, dysuria, foul smelling urine, changes to urinary stream, flank pain, fever, and or chills. Discussed at length potential causes for lower urinary tract symptoms patient is experiencing. She has a history of 3 vaginal births of average sized babies and somewhat long labors. Discussed at length potential causes for microscopic hematuria as well as stress incontinence. Discussed at length pelvic floor therapy with vaginal weights. In office urinalysis results reviewed with the patient today. PVR 38ml's [facility] Medical History Iron deficiency anemia Surgical History Hx of cholecystectomy Family History Mother Blood clotting disorder Breast cancer Father Prostate cancer Brother No problems noted. Sister No problems noted. Social History Housing: Apartment Alcohol intake: current Alcohol intake frequency: a few times a week Alcohol type: hard liquor Patient Tobacco Use Status: Former Tobacco user Cigarette Packs Per Day: 1 service: No Current occupational status: employed Cognitive needs: No Hearing needs: No Vision needs: No Review of Systems Const All systems reviewed & are unremarkable except as noted in HPI and below Physical Exam Const General: cooperative, healthy appearing, comfortable, no acute distress, well developed, alert and awake Orientation/consciousness: patient oriented x3 Limitations: no limitations HEENT Head: Yes normal to inspection, Yes normocephalic and Yes atraumatic Ears: hearing grossly normal bilaterally Eyes General: appearance normal, both eyes and all related structures Neck Neck: Yes normal visual inspection and Yes trachea midline Chest Chest palpation & inspection: normal inspection of the chest Resp Effort & Inspection: normal respiratory effort and able to speak in complete sentences Cardio Rate: regular rate GI Inspection: Yes normal to inspection General: Yes no CVA tenderness Back/Spine/Pelvis Back: no CVA tenderness Skin General skin exam: no rashes or lesions noted Neuro General: patient oriented x3 Extrem General: Yes normal to inspection Psych Appearance: grossly normal and well kempt Mental Status: mental status grossly normal Speech and movement: Normal speech and movement present and Clear speech present Affect: normal affect Attitude: cooperative Thought process: Normal thought process present Thought content: Normal thought content present Insight: Good insight present (Psych) Judgement: Good judgement present (Psych) Office Procedures Post Void Residual Post Residual Void Post Void Residual (PVR): 38 [id number] Void Residual by ultrasound Results AMB Urinalysis, Automated UA Leukoctes 0 Brando/uL Last Edit by ELIF Jerez on 09/19/23 16:23 UA Nitrite Negative Last Edit by ELIF Jerez on 09/19/23 16:23 UA Urobilinogen 0.2 mg/dL Last Edit by ELIF Jerez on 09/19/23 16:2 3 UA Protein 0 mg/dL Last Edit by ELIF Jerez on 09/19/23 16:23 UA pH 6.5 Last Edit by ELIF Jerez on 09/19/23 16:23 UA Blood 200 Navi/uL Last Edit by ELIF Jerez on 09/19/23 16:23 3+ Tyrone Hanley 09/19/23 16:23 UA Specific [place] 1.010 Last Edit by ELIF Jerez on 09/19/23 16: 23 UA Ketone Negative Last Edit by ELIF Jerez on 09/19/23 16:23 UA Bilirubin 0 mg/dL Last Edit by ELIF Jerez on 09/19/23 16:23 UA Glucose 100 mg/dL Last Edit by ELIF Jerez on 09/19/23 16:23 Results Reviewed Results Reviewed: Laboratory Last Values Urine pH (Auto) 6.5 09/19/23 16:12 Specific [place] (Auto) 1.010 09/19/23 16:12 Urine Protein (Auto) 0 mg/dL 09/19/23 16:12 Glucose (UA)(Auto) 100 mg/dL 09/19/23 16:12 Urine Ketones (Auto) Negative 09/19/23 16:12 Urine Blood (Auto) 200 Navi/uL 09/19/23 16:12 Urine Nitrite (Auto) Negative 09/19/23 16:12 Urine Bilirubin (Auto) 0 mg/dL 09/19/23 16:12 Urine Urobilinogen (Auto) 0.2 mg/dL 09/19/23 16:12 Leukocyte Esterase (Auto) 0 Brando/uL 09/19/23 16:12 Assessment & Plan Assessment & Plan (1) Stress incontinence: Code(s): N39.3 - Stress incontinence (female) (male) (2) Microscopic hematuria: Code(s): R31.29 - Other microscopic hematuria (3) Nicotine dependence: Code(s): F17.200 - Nicotine dependence, unspecified, uncomplicated Plan In office urinalysis results reviewed with the patient today; as noted above PVR 38mL Will await approval/PA for Myrbetriq as discussed and prescribed. Patient reports being smoke free for over 3 months now; encouragement and reassurance provided Discussed in office cystoscopy for further workup of microscopic hematuria however patient declines at this time. Discussed at length potential causes for microscopic hematuria as well as lower urinary tract symptoms patient is experiencing. Continue pelvic floor exercises as discussed. Discussed, educated, encouraged on the importance of drinking plenty of water daily. Discussed possible near future urodynamics for further assessment evaluation Follow-up in 6 weeks with PVR; or sooner with any issues, concerns, and or questions. Orders: Orders AMB Urinalysis Automated Today Z13.9 - Encounter for screening, unspecified AMB Post Void Residual by ultrasound Today N39.8 - Other specified disorders of urinary system Patient Instructions: The patient had an opportunity to ask questions regarding the treatment plan. All questions were answered. Physical exam, labs, and imaging were discussed and reviewed in detail. As well as risks, benefits, and discussion of treatment choices. No major barriers to understanding were identified. The patient exp ressed understanding and agreement with the above treatment plan. The patient was made aware they should contact our office by phone for worsening of their current condition, the appearance of new symptoms, or with any questions or concerns. Compliance is encouraged with any medications and follow up testing that is ordered. It is a privilege to be allowed the opportunity to participate in? your urological care.? Again, if you have any questions or concerns If you have any questions or concerns please do not hesitate to contact me. The office is [phone]. This note is constructed using voice recognition software. While every effort has been made to ensure accuracy roll press operator errors may have been included. Yours sincerely, AMAURI Fields-COREEN Coding Level of Care Code Est Pt Level 3 (68201) Diagnoses Stress incontinence N39.3 Microscopic hematuria R31.29 Nicotine dependence F17.200 CPT Codes Post Residual Void - PVR CPT Code: 37319-Kcsj Void Residual by ultrasound ([id number])
== END 2023-09-19 16:42 | disposition home or self-care (01) ==
PROVIDERS: PCP Nurse Practitioner Family; Visit Provider Nurse Practitioner Family
DX: N39.3 Stress incontinence (female) (male) (principal); R31.29 Other microscopic hematuria; F17.200 Nicotine dependence, unspecified, uncomplicated
CPT/HCPCS: 99213

== ENCOUNTER → 2023-09-19 15:54 | Outpatient (BNVA) | payer OTHER, SELFPAY | PROVIDERS: PCP Nurse Practitioner Family; Visit Provider Nurse Practitioner Family | DX: R31.29 Other microscopic hematuria (principal); N39.3 Stress incontinence (female) (male); Z87.891 Personal history of nicotine dependence | CPT/HCPCS: 51798; 81003 ==

== ENCOUNTER 2023-12-21 14:39 | Outpatient (AMB) | payer OTHER, SELFPAY ==
--- NOTE | 2023-12-21 14:56 | MHC.OFFVIS ---
Intake Visit Reasons: 6w/PVR Intake Note: Patient presents for follow up visit for stress incontinence Urology Medications: Vesicare Blood Thinner: none PVR: 0ml's Acoustic Engineer Required: No Accompanied by: Self / Same As Patient Allergies No Known Allergies Allergy (Verified 09/19/23 20:04) Medication List - Last Reconciled 12/21/23 by AMAURI Fields-COREEN bupropion HCl SR (Wellbutrin SR) 150 mg PO QAM peg 3350-electrolytes 236-22.74-6.74 -5.86 gram (Golytely) 240 mL PO Q10M 1 day vibegron (Gemtesa) 75 mg PO DAILY 30 days HPI Comments Details: Maria C is a very pleasant 48-year-old female patient of Dr. Moffett. She presents to the office today for a follow up of her lower urinary tract symptoms. Of note, patient was seen approximately 3 months ago at which time she was started on VESIcare. In discussion with the patient today she reports noting no true improvement in urinary urgency, urinary frequency, and episodes of incontinence. She has previously trialed Myrbetriq, oxybutynin, and tolterodine with no improvement in lower urinary tract symptoms. She also has a history of microscopic hematuria in the setting of nicotine dependence. Previous workup has included a CT urogram that noted symmetric nephrograms. No renal mass. Symmetric urinary excretion. No filling defects in the collecting systems or ureters. The bladder with no bladder calculus or discrete bladder mass. No explanation for hematuria. No nephrolithiasis or renal mass. Normal CT urogram. In office urinalysis results reviewed with the patient today. No microscopic hematuria noted. In discussion with the patient today she reports to be doing and feeling well. She discusses how well she is feeling with her weight loss. She reports to be performing HIT interval training exercises as well as yoga. She discusses how she is up to approximately 5 minutes of running at a time. She discusses her recent divorce. She otherwise denies nocturia, hematuria, dysuria, foul smelling urine, changes to urinary stream, flank pain, fever, and or chills. Discussed at length potential causes for lower urinary tract symptoms patient is experiencing. She has a history of 3 vaginal births of average sized babies and somewhat long labors. Discussed at length potential causes for microscopic hematuria as well as stress incontinence. Discussed at length pelvic floor therapy with vaginal weights. In office urinalysis results reviewed with the patient today. PVR 0ml's [facility] Medical History Iron deficiency anemia Surgical History Hx of cholecystectomy Family History Mother Blood clotting disorder Breast cancer Father Prostate cancer Brother No problems noted. Sister No problems noted. Social History Housing: Apartment Alcohol intake: current Alcohol intake frequency: a few times a week Alcohol type: hard liquor Patient Tobacco Use Status: Former Tobacco user Cigarette Packs Per Day: 1 service: No Current occupational status: employed Cognitive needs: No Hearing needs: No Vision needs: No Review of Systems Const All systems reviewed & are unremarkable except as noted in HPI and below Physical Exam Const General: cooperative, healthy appearing, comfortable, no acute distress, well developed, alert and awake Orientation/consciousness: patient oriented x3 Limitations: no limitations HEENT Head: Yes normal to inspection, Yes normocephalic and Yes atraumatic Ears: hearing grossly normal bilaterally Eyes General: appearance normal, both eyes and all related structures Neck Neck: Yes normal visual inspection and Yes trachea midline Chest Chest palpation & inspection: normal inspection of the chest Resp Effort & Inspection: normal respiratory effort and able to speak in complete sentences Cardio Rate: regular rate GI Inspection: Yes normal to inspection General: Yes no CVA tenderness Back/Spine/Pelvis Back: no CVA tenderness Skin General skin exam: no rashes or lesions noted Neuro General: patient oriented x3 Extrem General: Yes normal to inspection Psych Appearance: grossly normal and well kempt Mental Status: mental status grossly normal Speech and movement: Normal speech and movement present and Clear speech present Affect: normal affect Attitude: cooperative Thought process: Normal thought process present Thought content: Normal thought content present Insight: Good insight present (Psych) Judgement: Good judgement present (Psych) Office Procedures Post Void Residual Post Residual Void Post Void Residual (PVR): 0 [id number] Void Residual by ultrasound Results AMB Urinalysis, Automated UA Leukoctes 0 Brando/uL Last Edit by Ashlie Irving on 12/21/23 15:23 UA Nitrite Negative Last Edit by Ashlie Irving on 12/21/23 15:23 UA Urobilinogen 0.2 mg/dL Last Edit by Ashlie Irving on 12/21/23 15:23 UA Protein 0 mg/dL Last Edit by Ashlie Irving on 12/21/23 15:23 UA pH 6.0 Last Edit by Ashlie Irving on 12/21/23 15:23 UA Blood 0 Navi/uL Last Edit by Ashlie Irving on 12/21/23 15:23 UA Specific [facility] 1.010 Last Edit by Ashlie Irving on 12/21/23 15:23 UA Ketone Negative Last Edit by Ashlie Irving on 12/21/23 15:23 UA Bilirubin 0 mg/dL Last Edit by Ashlie Irving on 12/21/23 15:23 UA Glucose 0 mg/dL Last Edit by Ashlie Irving on 12/21/23 15:23 Results Reviewed Results Reviewed: Laboratory Last Values Urine pH (Auto) 6.0 12/21/23 15:22 Specific [facility] (Auto) 1.010 12/21/23 15:22 Urine Protein (Auto) 0 mg/dL 12/21/23 15:22 Glucose (UA)(Auto) 0 mg/dL 12/21/23 15:22 Urine Ketones (Auto) Negative 12/21/23 15:22 Urine Blood (Auto) 0 Navi/uL 12/21/23 15:22 Urine Nitrite (Auto) Negative 12/21/23 15:22 Urine Bilirubin (Auto) 0 mg/dL 12/21/23 15:22 Urine Urobilinogen (Auto) 0.2 mg/dL 12/21/23 15:22 Leukocyte Esterase (Auto) 0 Brando/uL 12/21/23 15:22 Assessment & Plan Assessment & Plan (1) Stress incontinence: Code(s): N39.3 - Stress incontinence (female) (male) Category: Medical (2) Microscopic hematuria: Code(s): R31.29 - Other microscopic hematuria Category: Medical (3) Nicotine dependence: Code(s): F17.200 - Nicotine dependence, unspecified, uncomplicated Category: Medical Plan In office urinalysis results reviewed with the patient today; as noted above PVR 0mL Stop VESIcare Start Gemtesa as discussed and prescribed. Patient reports being smoke free for almost 6 months now; encouragement and reassurance provided Discussed at length potential causes for microscopic hematuria as well as lower urinary tract symptoms patient is experiencing. Continue pelvic floor exercises as discussed. Discussed, educated, encouraged on the importance of drinking plenty of water daily. Will schedule for in office urodynamics for further assessment evaluation given multiple failed overactive bladder medications Discussed at length in office urodynamics Follow-up in office urodynamics; or sooner with any issues, concerns, and or questions. Orders: Orders AMB Urinalysis Automated Today Z13.9 - Encounter for screening, unspecified AMB Post Void Residual by ultrasound Today N39.3 - Stress incontinence (female) (male) Medications: New vibegron (Gemtesa) 75 mg PO DAILY 30 days 30 tabs 2RF N32.81 - Overactive bladder Discontinued peg 3350-electrolytes 236-22.74-6.74 -5.86 gram (Golytely) until fecal effluent is clear; do not exceed a total volume of 2,000 mL Discontinued Reason: Patient Completed Course 240 mL PO Q10M 1 day 4,000 mL 0RF Z12.11 - Encounter for screening for malignant neoplasm of colon solifenacin (Vesicare) Discontinued Reason: Doctor's Order 5 mg PO DAILY 30 days 30 tabs 1RF Patient Instructions: The patient had an opportunity to ask questions regarding the treatment plan. All questions were answered. Physical exam, labs, and imaging were discussed and reviewed in detail. As well as risks, benefits, and discussion of treatment choices. No major barriers to understanding were identified. The patient expressed understanding and agreement with the above treatment plan. The patient was made aware they should contact our office by phone for worsening of their current condition, the appearance of new symptoms, or with any questions or concerns. Compliance is encouraged with any medications and follow up testing that is ordered. It is a privilege to be allowed the opportunity to participate in? your urological care.? Again, if you have any questions or concerns If you have any questions or concerns please do not hesitate to contact me. The office is [phone]. This note is constructed using voice recognition software. While every effort has been made to ensure accuracy well service pump equipment operator errors may have been included. Yours sincerely, AMAURI Fields-BC
== END 2023-12-21 15:46 | disposition home or self-care (01) ==
PROVIDERS: PCP Nurse Practitioner Family; Visit Provider Nurse Practitioner Family
DX: N39.3 Stress incontinence (female) (male) (principal); R31.29 Other microscopic hematuria; F17.200 Nicotine dependence, unspecified, uncomplicated
CPT/HCPCS: 99214

== ENCOUNTER → 2023-12-21 14:39 | Outpatient (BNVA) | payer OTHER, SELFPAY | PROVIDERS: PCP Nurse Practitioner Family; Visit Provider Nurse Practitioner Family | DX: R31.29 Other microscopic hematuria (principal); N39.3 Stress incontinence (female) (male); F17.200 Nicotine dependence, unspecified, uncomplicated | CPT/HCPCS: 51798; 81003 ==

== ENCOUNTER 2024-02-02 08:32 | Outpatient (AMB) | payer OTHER, SELFPAY ==
--- NOTE | 2024-02-02 08:54 | A.OFFVIS_ITS ---
Intake Visit Reasons: Urodynamics Intake Note: Patient presents today for a URODYNAMIC Procedure: Patient declined to have this procedure done. Meds: Gemtesa Allergies to Antibiotic: No Known Allergies Blood Thinner: None Art Objects Repairer Required: No Accompanied by: Self / Same As Patient Allergies No Known Allergies Allergy (Verified 02/02/24 08:55) HPI Comments Details: 02/02/24-- Scheduled for urodynamics. The patient stated she did not want to have the procedure due to the catheter. She stated she had received a pamphlet from the [employer] regarding procedure but she has changed her mind because she feels the procedure is invasive. I reviewed the procedure, risks and benefits with the patient. 12 minutes spent in face to face discussion with the patient. Review of chart: 12/21/23---Maria C is a very pleasant 48-year-old female patient of Dr. Moffett. She presents to the office today for a follow up of her lower urinary tract symptoms. Of note, patient was seen approximately 3 months ago at which time she was started on VESIcare. In discussion with the patient today she reports noting no true improvement in urinary urgency, urinary frequency, and episodes of incontinence. She has previously trialed Myrbetriq, oxybutynin, and tolterodine with no improvement in lower urinary tract symptoms. She also has a history of microscopic hematuria in the setting of nicotine dependence. Previous workup has included a CT urogram that noted symmetric nephrograms. No renal mass. Symmetric urinary excretion. No filling defects in the collecting systems or ureters. The bladder with no bladder calculus or discrete bladder mass. No explanation for hematuria. No nephrolithiasis or renal mass. Normal CT urogram. In office urinalysis results reviewed with the patient today. No microscopic hematuria noted. In discussion with the patient today she reports to be doing and feeling well. She discusses how well she is feeling with her weight loss. She reports to be performing HIT interval training exercises as well as yoga. She discusses how she is up to approximately 5 minutes of running at a time. She discusses her recent divorce. She otherwise denies nocturia, hematuria, dysuria, foul smelling urine, changes to urinary stream, flank pain, fever, and or chills. Discussed at length potential causes for lower urinary tract symptoms patient is experiencing. She has a history of 3 vaginal births of average sized babies and somewhat long labors. Discussed at length potential causes for microscopic hematuria as well as stress incontinence. Discussed at length pelvic floor therapy with vaginal weights. In office urinalysis results reviewed with the patient today. PVR 0ml's [facility] Medical History Iron deficiency anemia Surgical History Hx of cholecystectomy Family History Mother Blood clotting disorder Breast cancer Father Prostate cancer Brother No problems noted. Sister No problems noted. Social History Housing: Apartment Alcohol intake: current Alcohol intake frequency: a few times a week Alcohol type: hard liquor Patient Tobacco Use Status: Former Tobacco user Cigarette Packs Per Day: 1 service: No Current occupational status: employed Cognitive needs: No Hearing needs: No Vision needs: No Assessment & Plan Assessment & Plan (1) Stress incontinence: Code(s): N39.3 - Stress incontinence (female) (male) Category: Medical Plan Follow up prn, pt stated she would call if symptoms worsen. Patient Instructions: The patient is aware they should contact our office by phone for worsening of their current condition or the appearance of new symptoms. Compliance is encour aged with any medications and followup testing that is ordered. It is a privilege to be allowed the opportunity to participate in the urologic care of your patient. If you have any questions or concerns regarding treatment for the above conditions please do not hesitate to contact me. The office telephone contact is [phone]. This note is constructed in part using voice recognition software. While every effort has been made to ensure accuracy prosthetic dentist errors may have been included. Yours sincerely, Reji Mitchell MD Coding Level of Care Code Est Pt Level 2 (23448) Diagnoses Stress incontinence N39.3
== END 2024-02-02 09:22 | disposition home or self-care (01) ==
PROVIDERS: PCP Nurse Practitioner Family; Visit Provider Urology
DX: N39.3 Stress incontinence (female) (male) (principal)
CPT/HCPCS: 99212

== ENCOUNTER → 2024-02-02 08:32 | Outpatient (BNVA) | payer OTHER, SELFPAY | PROVIDERS: PCP Nurse Practitioner Family; Visit Provider Urology ==

== ENCOUNTER 2024-03-25 07:29 | Day surgery (SDC) | payer OTHER, SELFPAY ==
[2024-03-25 08:28] LABS: UPreg QC Valid YES; Urine Pregnancy NEGATIVE (NEGATIVE)
[2024-03-25 08:29] VITALS: BMI 37.2
[2024-03-25 08:39] VITALS: BP 134/83; PULSE 60; RESP 16; TEMP 36.1; O2SAT 95
--- NOTE | 2024-03-25 08:50 | MHC.SHP ---
Pre-Procedural Eval Section A - 24 Hr Update-Section A only Date of Service: 03/25/24 The patient is an INPATIENT: No The patient has been examined within 24 hours of the surgical procedure. The History & Physical has been completed within 30 days and I have reviewed it.: No Section B - Complete if H&P > 30 days Chief Complaint: Colon cancer screening Relevant Family History (Specify if Yes): No Relevant Social History: Tobacco Use Present Medications: see Short Stay Collaborative assessment Medical History: Significant History (Iron-deficiency anemia) History of Previous Operations: Relevant previous surgery/procedure and date(s) (Hx of cholecystectomy) Allergies: Allergies Allergy/AdvReac Type Severity Reaction Status Date / Time No Known Allergies Allergy Verified 03/25/24 08:32 Review of Systems Sugical H&P ROS: Negative: Constitution, Cardiovascular, Respiratory and Gastrointestinal Exam Surgical H&P Exam: Normal: Heart, Normal: Lungs, Normal: Extremities and Normal: Abdomen Plan Diagnosis/Plan: Unchanged I have reviewed the history and physical and performed a pertinent physical examination on my patient. No changes have occurred unless specified. Time Spent With Patient Time: Total time managing care of this patient today ____ minutes.
[2024-03-25] MEDS: Lactated Ringers 1,000 ML 100 ML IVCONT (08:54)
--- NOTE | 2024-03-25 09:46 | P.CONAN_ITS ---
HPI - Anesthesia Eval Consult details Narrative: 49 yo F presenting for colonoscopy [facility] Active Problems Active Problems: All Active Problems Pre-op examination (Acute) Borderline hyperlipidemia (Acute) Elevated fasting glucose (Acute) Elevated TSH (Acute) Nicotine dependence (Acute) Microscopic hematuria (Acute) Obesity (BMI 30-39.9) (Acute) Cigarette smoker motivated to quit (Acute) Anxiety (Acute) Stress incontinence (Acute) Iron deficiency anemia (Acute) Past Medical History Medical History Iron deficiency anemia Family History Family History Mother Blood clotting disorder Breast cancer Father Prostate cancer Brother No problems noted. Sister No problems noted. Family history of problems with anesthesia: No Surgical History Surgical History Hx of cholecystectomy History of Problems with Anesthesia: No Social History Social History Housing: Apartment Alcohol intake: current Alcohol intake frequency: a few times a week Alcohol type: hard liquor Patient Tobacco Use Status: Former Tobacco user Cigarette Packs Per Day: 1 Use of substances other than those prescribed or required for medical reasons: No Are you DNR?: No Advance Directives: No Advance Directives Information Provided: Yes service: No Current occupational status: employed Cognitive needs: No Hearing needs: No Vision needs: No Meds Allergies Allergy/AdvReac Type Severity Reaction Status Date / Time No Known Allergies Allergy Verified 03/25/24 08:32 Active Medications: Current Medications Lactated Ringer's (Lr) 1,000 mls @ 100 mls/hr IVCONT .Q10H DONN Last Admin: 03/25/24 08:54 Dose: 100 mls/hr Home Medications ?Medication ?Instructions ?Recorded ?Confirmed ?Last Taken ?Type No Known Home Meds 03/25/24 03/25/24 Unknown History Exam Exam Date and Time: March 25, 2024 0945 Height,Weight and Vital Signs: Height 5 ft 1.5 in Weight 90.718 kg Last Vital Signs Temp 97.0 F 03/25/24 08:39 Pulse 60 03/25/24 08:39 Resp 16 03/25/24 08:39 BP 134/83 03/25/24 08:39 Pulse Ox 95 03/25/24 08:39 O2 Del Method Room Air 03/25/24 08:39 Pertinent Lab Results Pertinent Lab Results: Laboratory Tests 03/25/24 08:15 Urine Test NEGATIVE Airway Mallampati Class: II TM Dist: >3cm Neck ROM: Full Partial: Upper Heart: S1S2 Lungs: CTAB Assessment and Plan Assessment Anesthesia Assessment: Anesthesia Plan Discussed and Chart Reviewed Final Anesthetic Review Family History of Problems with Anesthesia: No History of Problems with Anesthesia: No NPO: Yes ASA Class: II Final Preanesthetic Review: No Changes in Pt Med Stat, Meds/Allgs Chart Reviewed, Consent Obtained/Reviewed and Anes Risks/Benef Reviewed Patient Risk: Low Procedure Risk: Low Anesthetic Plan Anesthetic Plan: MAC: and Agree w/ Assess. and Plan Disposition: Standard PACU
[2024-03-25 10:37] VITALS: BP 129/84; PULSE 67; RESP 16; TEMP 36.7; O2SAT 100
--- NOTE | 2024-03-25 10:37 | HO.OPN-COLON ---
Colonoscopy Operative Note Operative Note Date of Service: 03/25/24 Narrative: COLONOSCOPY TILL CECUM WITH SNARE POLYPECTOMY Pre-op diagnosis: Colon cancer screening (First colonoscopy). Post-op diagnosis:? Colon polyp, Diverticulosis, Endoscopist:? Geovanna Rm MD Anesthesia:?MAC Consent: Indications for the procedure and potential complications of bleeding, perforation, reaction to medications and missed diagnosis were discussed with the patient and informed consent was obtained. Instrument: Olympus PCF H 190 L variable stiffness pediatric colonoscope Monitoring: Vital signs and clinical assessment, intermittent blood pressure monitoring, continuous EKG monitoring, Pulse oximetry and Carbon Dioxide monitoring were done throughout the procedure. Please see anesthesia flowsheet. Colon withdrawl time was 26 minutes. Procedure: The patient was placed in the left lateral decubitis position and pre-procedure medications were administered. After a digital rectal examination of the ano-rectum, the video colonoscope was inserted into the rectum and advanced through the colon to the cecum. The colonoscope was slowly withdrawn in a retrograde panoramic fashion and the colon mucosa was carefully examined including a retroflexed view of the rectum. Findings and interventions are described below. Procedure Difficulty: without difficulty Findings: Terminal Ileum: Not evaluated Cecum: Normal Ascending Colon: Normal Transverse Colon: A 10 mm sessile polyp in the distal transverse colon - removed with a cold snare Descending Colon: Normal Sigmoid Colon: Moderate diverticulosis Rectum: Normal Ano-rectum: Normal Colon preparation: Good after copious irrigation. [place] Bowel Preparation Scale Right colon; 2 Transverse colon: 2 Left colon; 2 (0 = Unprepared colon segment with mucosa not seen due to solid stool that cannot be cleared. 1 = Portion of mucosa of the colon segment seen, but other areas of the colon segment not well seen due to staining, residual stool and/or opaque liquid. 2 = Minor amount of residual staining, small fragments of stool and/or opaque liquid, but mucosa of colon segment seen well. 3 = Entire mucosa of colon segment seen well with no residual staining, small fragments of stool or opaque liquid) Impression and Post Procedure Diagnosis: Colonoscopy Findings: One medium sized polyp was removed Moderate diverticulosis seen in the sigmoid colon Plan: Pt has a FU appointment on 04/09/24 with Tata Schafer NP. Repeat Colonoscopy in 3-5 years if polyps are adenomatous and 10 year if polyps are hyperplastic. Above findings were reviewed with the patient and relevant handouts were given and the discharge area.
[2024-03-25 10:59] VITALS: BP 148/82; PULSE 71; RESP 18; TEMP 36.1; O2SAT 100
== END 2024-03-25 11:17 | disposition home or self-care (01) ==
PROVIDERS: Anesthesiology; Visit Provider Internal Medicine Gastroenterology
PROC: 0DJD8ZZ Inspection of Lower Intestinal Tract, Via Natural or Artificial Opening Endoscopic (ICD-10-PCS; CPT 45378; principal; 2024-03-25 09:20)
DX: Z12.11 Encounter for screening for malignant neoplasm of colon (principal); D12.3 Benign neoplasm of transverse colon; K57.30 Diverticulosis of large intestine without perforation or abscess without bleeding; D50.9 Iron deficiency anemia, unspecified; Z90.49 Acquired absence of other specified parts of digestive tract; Z87.891 Personal history of nicotine dependence
CPT/HCPCS: 45385; 81025; 88305; J2704

== ENCOUNTER → 2024-03-25 07:29 | Outpatient (BNV) | payer OTHER, SELFPAY | PROVIDERS: Visit Provider Internal Medicine Gastroenterology | DX: Z12.11 Encounter for screening for malignant neoplasm of colon (principal); D12.3 Benign neoplasm of transverse colon; K57.30 Diverticulosis of large intestine without perforation or abscess without bleeding | CPT/HCPCS: 45385 ==

== ENCOUNTER 2024-04-09 10:07 | Outpatient (AMB) | payer OTHER, SELFPAY ==
--- NOTE | 2024-04-09 10:08 | A.OFFVIS_ITS ---
Vital Signs 04/09/24 10:09 Height 5 ft 1.5 in Weight 198 lb 6.656 oz BMI 36.9 BP 108/65 Blood Pressure Location Lt brachial Position Sitting Pulse 66 Intake Visit Reasons: s/p colonoscopy Intake Note: Maria C presents in the office as a follow up colonoscopy. CC: She states that she is not having any concerns - she felt funky right after procedure. 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 She denies any bowel or upper GI problems. She denies any cardiac or respiratory problems. There are no prior problems with anesthesia or sedation. No ID problems. There is no known FHX or crc or polyps, but her family does not talk about these things. Orders: Orders Colonoscopy - GI Use Only Today Z01.818 - Encounter for other preprocedural examination Medications: New peg 3350-electrolytes 236-22.74-6.74 -5.86 gram (Golytely) until fecal effluent is clear; do not exceed a total volume of 2,000 mL 240 mL PO Q10M 1 day 4,000 mL 0RF Z12.11 - Encounter for screening for malignant neoplasm of colon COLONOSCOPY 03/25/24 Findings: Terminal Ileum: Not evaluated Cecum: Normal Ascending Colon: Normal Transverse Colon: A 10 mm sessile polyp in the distal transverse colon - removed with a cold snare Descending Colon: Normal Sigmoid Colon: Moderate diverticulosis Rectum: Normal Ano-rectum: Normal Impression and Post Procedure Diagnosis: Colonoscopy Findings: One medium sized polyp was removed Moderate diverticulosis seen in the sigmoid colon Plan: Pt has a FU appointment on 04/09/24 with Tata Schafer NP. Repeat Colonoscopy in 3-5 years if polyps are adenomatous and 10 year if polyps are hyperplastic. BIOPSY Received: 03/25/24 Diagnosis Colon, transverse, polypectomy: Tubular adenoma; negative for high-grade d ysplasia or carcinoma TODAY'S VISIT The procedure should be repeated in 3 years due to the size of the tubular adenoma. The procedure was well tolerated. The results were explained and the patient is agreeable to the follow-up interval as stated. The bowel pattern has returned to normal. Education was provided to tell any 1st degree relatives about their findings to be sure that they are screened by age 45. Educated that they will be put on a recall list when it is time for their repeat scope but should they move out of state or away from the hospital they will need to remember along with their primary to repeat the procedure in a timely fashion to avoid any adverse complications. Next time she found the taste of the PEG prep quite discussing and will see if there is something better covered by her insurance that may be different. [facility] Medical History Iron deficiency anemia Surgical History Hx of colonoscopy Hx of cholecystectomy Family History Mother Blood clotting disorder Breast cancer Father Prostate cancer Brother No problems noted. Sister No problems noted. Social History Housing: Apartment Alcohol intake: current Alcohol intake frequency: a few times a week Alcohol type: hard liquor Patient Tobacco Use Status: Former Tobacco user Cigarette Packs Per Day: 1 service: No Current occupational status: employed Cognitive needs: No Hearing needs: No Vision needs: No Review of Systems Const Denies fatigue, Denies fever(s), Denies night sweats, Denies poor appetite and Denies weight loss ENT Reports Normal hearing present, Denies dental pain, Denies dysphagia, Denies hearing loss, Denies mouth pain, Denies odynophagia, Denies throat swelling, Denies tongue swelling and Reports other (Dentition adequate) Card Reports no additional complaints Resp Reports no additional complaints GI Details: Denies abdominal pain, Denies melena, Denies bloating, Denies hematochezia, Denies constipation, Denies GI cramping, Denies dysphagia, Denies excessive flatus, Denies early satiety, Denies heartburn, Denies diarrhea, Denies nausea, Denies odynophagia, Denies vomiting and Denies hematemesis Skin/Breast Denies pruritus, Denies lesions, Denies rash and Denies jaundice Neuro Reports Normal hearing present and Denies Abnormal speech present Endo Denies fatigue Aller/Immun Denies throat swelling and Denies tongue swelling Physical Exam Vital Signs: Last Vital Signs Pulse 66 04/09/24 10:09 BP 108/65 04/09/24 10:09 BMI result Body Mass Index 36.9 Const General: cooperative, no acute distress, well developed and well groomed Nutritional Appearance: well nourished, obese and overweight Orientation/consciousness: oriented to person, oriented to place and oriented to time Limitations: No language barrier, ambulation with cane, ambulation with walker and wheelchair HEENT Head: Yes normocephalic and Yes atraumatic Eyes General: appearance normal, both eyes and all related structures Pupils: Equal, round and reactive pupils present Neck Neck: Yes normal visual inspection and Yes no lymphadenopathy Thyroid: Thyroid normal Resp Effort & Inspection: normal respiratory effort and able to speak in complete sentences Auscultation: clear to auscultation bilaterally Cardio Rate: regular rate Rhythm: regular rhythm Heart sounds: Normal, physiologic split S2 sound present Peripheral pulses: radial pulses present and posterior tibial pulses present GI Inspection: No distended and No Abdominal panniculus present Palpation (GI): Soft to palpation, nontender, no guarding, not rigid, No hepatosplenomegaly present and Hepatosplenomegaly present Percussion: Yes normal to percussion Auscultation: normal bowel sounds Rectal Exam - Female: deferred Skin General skin exam: no rashes or lesions noted, turgor normal, skin not dry, no jaundice, No spider nevi and no striae Rashes: no rashes Nails: normal Neuro General: oriented to person, oriented to place and oriented to time Cranial nerves: Yes Equal, round and reactive pupils present and Yes Normal hearing present Speech: No Abnormal speech present Extrem General: Yes normal to inspection, No clubbing, No cyanosis and No edema Psych Thought process: Normal thought process present and not confabulating Thought content: Normal thought content present Insight: Good insight present (Psych) Judgement: Good judgement present (Psych) Results Reviewed Results Reviewed: COLONOSCOPY 03/25/24 Findings: Terminal Ileum: Not evaluated Cecum: Normal Ascending Colon: Normal Transverse Colon: A 10 mm sessile polyp in the distal transverse colon - removed with a cold snare Descending Colon: Normal Sigmoid Colon: Moderate diverticulosis Rectum: Normal Ano-rectum: Normal Impression and Post Procedure Diagnosis: Colonoscopy Findings: One medium sized polyp was removed Moderate diverticulosis seen in the sigmoid colon Plan: Pt has a FU appointment on 04/09/24 with Tata Schafer NP. Repeat Colonoscopy in 3-5 years if polyps are adenomatous and 10 year if polyps are hyperplastic. BIOPSY Received: 03/25/24 Diagnosis Colon, transverse, polypectomy: Tubular adenoma; negative for high-grade dysplasia or carcinoma Assessment & Plan Assessment & Plan (1) Tubular adenoma of colon: Comment: 03/2024= 10 mm TA repeat in 3 years Code(s): D12.6 - Benign neoplasm of colon, unspecified Category: Medical Plan The procedure should be repeated in 3 years due to the size of the tubular adenoma. The procedure was well tolerated. The results were explained and the patient is agreeable to the follow-up interval as stated. The bowel pattern has returned to normal. Education was provided to tell any 1st degree relatives about their findings to be sure that they are screened by age 45. Educated that they will be put on a recall list when it is time for their repeat scope but should they move out of state or away from the hospital they will need to remember along with their primary to repeat the procedure in a timely fashion to avoid any adverse complications. Next time she found the taste of the PEG prep quite discussing and will see if there is something better covered by her insurance that may be different. Medications: Discontinued solifenacin (Vesicare) Discontinued Reason: Patient no longer taking 5 mg PO DAILY 30 days 30 tabs 1RF Coding Level of Care Code Est Pt Level 3 (34754) Diagnoses Tubular adenoma of colon D12.6
[2024-04-09 10:09] VITALS: BP 108/65; PULSE 66; BMI 36.9
== END 2024-04-09 10:19 | disposition home or self-care (01) ==
PROVIDERS: PCP Nurse Practitioner Family; Visit Provider Nurse Practitioner
DX: D12.6 Benign neoplasm of colon, unspecified (principal)
CPT/HCPCS: 99213

== ENCOUNTER → 2024-04-09 10:07 | Outpatient (BNVA) | payer OTHER, SELFPAY | PROVIDERS: PCP Nurse Practitioner Family; Visit Provider Nurse Practitioner ==

== ENCOUNTER 2024-05-16 07:35 | Outpatient (AMB) | payer OTHER, SELFPAY ==
--- NOTE | 2024-05-16 07:36 | A.OFFVIS_ITS ---
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 She presents to the office today for a follow up of her lower urinary tract symptoms. In discussion with the patient today she reports to be doing and feeling well. Of note, during last office visit approximately 4 months ago plan was to undergo in office urodynamics given patient with failed multiple overactive bladder medi cations however she felt procedure was invasive in did not wish to proceed. She states that she feels utilizing VESIcare 5 mg of VESIcare b.i.d. and pelvic floor exercises at home has been helpful. She also feels her weight loss has also been helpful in decreasing her lower urinary tract symptoms she had been experiencing. She currently denies any UTI like symptoms. She also has a history of microscopic hematuria in the setting of nicotine dependence. Previous workup has included a CT urogram that noted symmetric nephrograms. No renal mass. Symmetric urinary excretion. No filling defects in the collecting systems or ureters. The bladder with no bladder calculus or discrete bladder mass. No explanation for hematuria. No nephrolithiasis or renal mass. Normal CT urogram. In office urinalysis results reviewed with the patient today. No microscopic hematuria noted. PVR 0 mL. She discusses how well she is feeling with her weight loss. She reports to be performing HIT interval training exercises as well as yoga. She otherwise denies nocturia, hematuria, dysuria, foul smelling urine, changes to urinary stream, flank pain, fever, and or chills. She has a history of 3 vaginal births of average sized babies and somewhat long labors. Discussed at length potential causes for microscopic hematuria as well as stress incontinence. She otherwise offers no other issues or concerns at this time. [facility] Medical History Iron deficiency anemia Surgical History Hx of colonoscopy Hx of cholecystectomy Family History Mother Blood clotting disorder Breast cancer Father Prostate cancer Brother No problems noted. Sister No problems noted. Social History Housing: Apartment Alcohol intake: current Alcohol intake frequency: a few times a week Alcohol type: hard liquor Patient Tobacco Use Status: Former Tobacco user Cigarette Packs Per Day: 1 service: No Current occupational status: employed Cognitive needs: No Hearing needs: No Vision needs: No Review of Systems Const All systems reviewed & are unremarkable except as noted in HPI and below Physical Exam Const General: cooperative, healthy appearing, comfortable, no acute distress, well developed, alert and awake Orientation/consciousness: patient oriented x3 Limitations: no limitations HEENT Head: Yes normal to inspection, Yes normocephalic and Yes atraumatic Ears: hearing grossly normal bilaterally Eyes General: appearance normal, both eyes and all related structures Neck Neck: Yes normal visual inspection and Yes trachea midline Chest Chest palpation & inspection: normal inspection of the chest Resp Effort & Inspection: normal respiratory effort and able to speak in complete sentences Cardio Rate: regular rate GI Inspection: Yes normal to inspection General: Yes no CVA tenderness Back/Spine/Pelvis Back: no CVA tenderness Skin General skin exam: no rashes or lesions noted Neuro General: patient oriented x3 Extrem General: Yes normal to inspection Psych Appearance: grossly normal and well kempt Mental Status: mental status grossly normal Speech and movement: Normal speech and movement present and Clear speech present Affect: normal affect Attitude: cooperative Thought process: Normal thought process present Thought content: Normal thought content present Insight: Good insight present (Psych) Judgement: Good judgement present (Psych) Office Procedures Post Void Residual Post Residual Void Post Void Residual (PVR): 0 [id number]-[id number] Void Residual by ultrasound Results AMB Urinalysis, Automated UA Leukoctes 0 Brando/uL Last Edit by Weekend-a-gogomark Irving on 05/16/24 07:58 UA Nitrite Last Edit by Weekend-a-gogomark Irving on 05/16/24 07:58 UA Urobilinogen 0.2 mg/dL Last Edit by Weekend-a-gogomark Irving on 05/16/24 07:58 UA Protein 0 mg/dL Last Edit by GHEN MATERIALSeldon on 05/16/24 07:58 UA pH 6.0 Last Edit by GHEN MATERIALSeldon on 05/16/24 07:58 UA Blood 0 Navi/uL Last Edit by GHEN MATERIALSeldon on 05/16/24 07:58 UA Specific [place] 1.020 Last Edit by GHEN MATERIALSeldon on 05/16/24 07:58 UA Ketone Last Edit by GHEN MATERIALSeldon on 05/16/24 07:58 UA Bilirubin 0 mg/dL Last Edit by GHEN MATERIALSeldon on 05/16/24 07:58 UA Glucose 0 mg/dL Last Edit by Weekend-a-gogomark [email or web address] on 05/16/24 07:58 Results Reviewed Results Reviewed: Laboratory Last Values Urine pH (Auto) 6.0 05/16/24 07:40 Specific [place] (Auto) 1.020 05/16/24 07:40 Urine Protein (Auto) 0 mg/dL 05/16/24 07:40 Glucose (UA)(Auto) 0 mg/dL 05/16/24 07:40 Urine Blood (Auto) 0 Navi/uL 05/16/24 07:40 Urine Bilirubin (Auto) 0 mg/dL 05/16/24 07:40 Urine Urobilinogen (Auto) 0.2 mg/dL 05/16/24 07:40 Leukocyte Esterase (Auto) 0 Brando/uL 05/16/24 07:40 Assessment & Plan Assessment & Plan (1) Stress incontinence: Code(s): N39.3 - Stress incontinence (female) (male) Category: Medical Plan In office urinalysis results reviewed with the patient today; as noted above. PVR 0 mL. Continue VESIcare;Refill provided. Patient currently denies any bothersome urinary issues or concerns. Continue pelvic floor exercises. Follow-up in 6 months with PVR; or sooner with any issues, concerns, and or questions. Orders: Orders AMB Urinalysis Automated Today Z13.9 - Encounter for screening, unspecified AMB Post Void Residual by ultrasound Today N39.3 - Stress incontinence (female) (male) Medications: New solifenacin 5 mg PO BID 180 tabs 1RF 90 days N39.3 - Stress incontinence (f emale) (male) Patient Instructions: The patient had an opportunity to ask questions regarding the treatment plan. All questions were answered. Physical exam, labs, and imaging were discussed and reviewed in detail. As well as risks, benefits, and discussion of treatment choices. No major barriers to understanding were identified. The patient expressed understanding and agreement with the above treatment plan. The patient was made aware they should contact our office by phone for worsening of their current condition, the appearance of new symptoms, or with any questions or concerns. Compliance is encouraged with any medications and follow up testing that is ordered. It is a privilege to be allowed the opportunity to participate in? your urological care.? Again, if you have any questions or concerns If you have any questions or concerns please do not hesitate to contact me. The office is [phone]. This note is constructed using voice recognition software. While every effort has been made to ensure accuracy radio news anchor errors may have been included. Yours sincerely, THAO Fields Coding Level of Care Code Est Pt Level 3 (72499) Diagnoses Stress incontinence N39.3 CPT Codes Post Residual Void - PVR CPT Code: 21015-Nmlb Void Residual by ultrasound ([id number])
== END 2024-05-16 08:21 | disposition home or self-care (01) ==
PROVIDERS: Visit Provider Nurse Practitioner Family
DX: N39.3 Stress incontinence (female) (male) (principal); Z13.9 Encounter for screening, unspecified
CPT/HCPCS: 99213

== ENCOUNTER → 2024-05-16 07:35 | Outpatient (BNVA) | payer OTHER, SELFPAY | PROVIDERS: Visit Provider Nurse Practitioner Family | DX: N39.3 Stress incontinence (female) (male) (principal) | CPT/HCPCS: 51798; 81003 ==

== ENCOUNTER 2024-08-14 16:12 | Outpatient (AMB) | payer OTHER, SELFPAY ==
[2024-08-14 16:14] VITALS: BP 110/82; PULSE 78; O2SAT 96; BMI 35.9
--- NOTE | 2024-08-14 16:14 | MHC.PC.OV ---
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: No Accompanied by: Self / Same As Patient Allergies No Known Allergies Allergy (Verified 08/14/24 16:24) Medication List - Last Reconciled 08/14/24 by Red Fofana MD bupropion HCl XL 150 mg PO QAM solifenacin 5 mg PO BID 90 days Tobacco use date assessed: 08/14/24 Dental Screening Dental Screen Date: 08/14/24 Did you have a dental visit in the last 12 months?: Yes Did you have a dental problem in the last 6 months where you did not have access to dental care?: No Was dental information given to patient?: Patient has dentist HPI ANNUAL HPI Details Patient comes in today for her annual physical examination This is the first time I am seeing patient as she is transferring over from Anali Moffett, who is no longer with the practice She currently has a few issues that she would like to have addressed States that she has been dealing with a lingering non-productive cough for the past 3 weeks now that started when she came down with a cold and a respiratory infection Notes that her symptoms of sore throat, cough and congestion then were mostly mild and she did not really had to take any medications for relief at the time and that all of her symptoms gradually cleared up except for her recurrent cough States that she did not test for COVID or flu and that she has never contracted COVID in the past to her knowledge She denies any fever or any SOB/chest tightness Denies any chest pains She denies any headaches or dizziness No nausea/vomiting, no abdominal pain No change in bowel habits noted She denies any acute urinary symptoms Adds that she has been experiencing recurrent pain at the base of both her thumbs for a while now 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 and works also with a computer all day long Adds that she's had a wart on her right middle finger that keeps falling off and recurring - states that she has used OTC remedies a few times in the past with no permanent success Patient also states that she has managed to finally quit smoking after 28 years and was smoking up to a pack a day at the height of her smoking - quit date was 05/15/2024 She has also been trying to eat healthier and implementing some positive changes to her lifestyle and activities and has been able to lose some weight (about 15 to 18 pounds) since her last visit here over a year ago She had her screening colonoscopy done with Dr. Rm back on 03/25/2024 - she had a polyp removed that came out as a tubular adenoma on pathology and was recommended to have repeat colonoscopy in 3 years States that she has not had a mammogram or gynecology exam/pap smear done in a few years now and would like to get these updated [facility] Medical History (Updated 08/14/24 @ 19:42 by Red Fofana MD) Obesity (BMI 30-39.9) Vitamin D deficiency Ex-smoker Tubular adenoma of colon Impaired fasting glucose Elevated TSH Pure hypercholesterolemia Iron deficiency anemia Surgical History (Updated 08/14/24 @ 19:18 by Red Fofana MD) Hx of colonoscopy Hx of cholecystectomy Family History Mother Blood clotting disorder Breast cancer Father Prostate cancer Brother No problems noted. Sister No problems noted. Social History Housing: Apartment Alcohol intake: current Alcohol intake frequency: a few times a week Alcohol type: hard liquor Patient Tobacco Use Status: Former Tobacco user Cigarette Packs Per Day: 1 e-Cigarette/Vaping Use: Never Used service: No Current occupational status: employed Cognitive needs: No Hearing needs: No Vision needs: No Questionnaire PHQ-9 Over the last 2 weeks, how often have you been bothered by any of the following problems? 1. Little interest or pleasure in doing things: not at all 2. Feeling down, depressed, or hopeless: not at all 3. Trouble falling or staying asleep, or sleeping too much: not at all 4. Feeling tired or having little energy: several days 5. Poor appetite or overeating: not at all 6. Feeling bad about yourself - or that you are a failure or have let yourself or your family down: not at all 7. Trouble concentrating on things, such as reading the newspaper or watching television: not at all 8. Moving or speaking so slowly that other people could have noticed. Or the opposite - being so fidgety or restless that you have been moving around a lot more than usual: not at all 9. Thoughts that you would be better off or of hurting yourself in some way: not at all Total score: 1 Depression Screening Interpretation: Negative Depression Screening Done: Yes 44308 - PHQ-9 Billing: Yes Source: Developed by Drs. Hugo Robertson, Ashley Otero, Mark Conroy and colleagues, with an educational robert from [employer]. Thrive Questionnaire Date Thrive assessed: 08/14/24 I am a: Patient What is your living situation today?: I have a steady place to live Within the past 12 months, did the food you bought not last and you didn't have the money to get more?: I choose not to answer this question Within the past 12 months, did you worry whether your food would run out before you got money to buy more?: Never true Do you have trouble paying for medicines?: No Do you have trouble getting transportation to medical appointments?: No Do you have trouble paying your heating and electricity bill?: No Do you have trouble taking care of your child, family member or friend?: No Do you have trouble with day-to-day activities such as bathing, preparing meals, shopping, managing finances, etc.?: No Are you currently unemployed and looking for a job?: No Are you interested in more education?: No Please select the resources that you would like help with: None Currently or been in a relationship where the following occur: No concerns reported THRIVE Score: 0 AUDIT C Alcohol Use Questionnaire (AUDIT-C) 1. How often do you have a drink containing alcohol?: Never 3. How often do you have six or more drinks on one occasion?: Never Total Score: 0 Score Reviewed/Action Taken: Yes MATIAS-7 AMB Questionnaire MATIAS-7 Date MATIAS - 7 assessed: 08/14/24 Feeling nervous, anxious, or on edge: 0 = Not at all Not being able to stop or control worryin = Not at all Worrying too much about different things: 0 = Not at all Trouble relaxin = Not at all Being so restless that it is hard to sit still: 0 = Not at all Becoming easily annoyed or irritable: 0 = Not at all Feeling afraid as if something awful might happen: 0 = Not at all Total MATIAS-7 score (0-4 normal; 5-9 mild; 10-14 moderate; 15-21 severe): 0 Source: Developed by Drs. Hugo Robertson, Ashley Otero, Mark Conroy and colleagues, with an educational robert from [employer]. Review of Systems Const Denies chills, Denies difficulty sleeping, Denies fatigue, Denies fever(s), Denies headache(s) and Denies malaise Eyes Denies blurry vision, Denies change in vision, Denies irritation and Denies itchy eyes ENT Denies dysphagia, Denies dizziness, Denies otalgia, Denies headache(s), Denies nasal congestion, Denies neck pain, Denies odynophagia, Denies sinus pain and Denies sore throat Card Denies chest pain, Denies rapid heart rate, Denies irregular heart rhythm, Denies palpitations and Denies dyspnea Resp Denies chest congestion, Reports cough (recurrent non-productive cough x 3 weeks), Denies dyspnea and Denies wheezing GI Denies abdominal pain, Denies bloating, Denies constipation, Denies dysphagia, Denies heartburn, Denies diarrhea, Denies nausea, Denies odynophagia and Denies vomiting Denies hematuria, Denies urinary frequency, Denies dysuria, Denies urinary incontinence and Denies urinary urgency Musc Denies back pain, Reports arthralgias (on and off over the base of both thumbs), Denies joint swelling, Denies muscle weakness and Denies neck pain Skin/Breast Details: (+) recurrent wart on the dorsal aspect of the left middle finger Denies breast pain, Denies breast mass, Denies change in pigmentation, Denies rash and Denies unusual bruising Neuro Denies dizziness, Denies headache(s) and Denies paresthesias Psych Denies anxiety and Denies depression Endo Denies fatigue and Denies palpitations Ricardo/Lymph Denies easy bruising Aller/Immun Denies itchy eyes and Denies wheezing Physical exam (Primary Care) Vital Signs: Last Vital Signs Pulse 78 08/14/24 16:14 BP 110/82 08/14/24 16:14 Pulse Ox 96 08/14/24 16:14 Oxygen Delivery Method Room Air 08/14/24 16:14 BMI result Body Mass Index 35.9 Tobacco/Smoking Status: Tobacco use Status Tobacco use date assessed 08/14/24 08/14/24 16:18 Patient Tobacco Use Status Former Tobacco user 08/14/24 16:18 e-Cigarette/Vaping Use Never Used 08/14/24 16:18 PHQ-9: PHQ-9 Score PHQ-9: Total score 1 08/14/24 16:26 Depression Screening Interpretation: Negative Thrive Assessment: Date of Thrive Assessment Date Thrive assessed 08/14/24 08/14/24 16:18 Currently or been in a relationship where the following occur: No concerns reported Const General: no acute distress, alert and awake Orientation/consciousness: patient oriented x3 HENMT Head: Yes normocephalic and Yes atraumatic Ears: external ears normal, TM's normal bilaterally and EAC's normal General nose exam: No nasal discharge present Face and sinus: Yes normal facial exam and Yes sinuses nontender Teeth and gingiva: dentition normal Throat: Yes posterior oropharynx normal and Yes tonsils normal (no TP congestion) Eyes Eyelids: Yes eyelids normal Conjunctivae: conjunctivae normal Pupils: Equal, round and reactive pupils present EOM: EOMs intact bilaterally Neck Neck: Yes supple and No lymphadenopathy Thyroid: Thyroid normal Resp Auscultation: no crackles, no rales, wheezes (faint, occasionally) expiratory wheezes and diminished lung sounds (slightly) bilateral Cardio Rate: regular rate Rhythm: regular rhythm Heart sounds: no murmurs GI Palpation (GI): Soft to palpation, nontender and No hepatosplenomegaly present Auscultation: normal bowel sounds General: Yes no CVA tenderness Back/Spine/Pelvis Back: no CVA tenderness Thoracic/Lumbar Spine: thoracic and lumbar spine normal to inspection Skin Other: (+) small wart lesion on the dorsum of the middle phalanx of the left middle finger Rashes: no rashes Neuro General: patient oriented x3, moves all extremities, no focal motor deficits and CN's II-XI intact bilaterally Cranial nerves: Yes Equal, round and reactive pupils present Cognition (Neuro): normal cognition Gait exam (Neuro): Normal gait present Extrem General: Yes no clubbing, cyanosis or edema Right upper extremity: Extremity exam: right hand Details: tenderness Location: of the thumb Location: at the thenar eminence and at the MCP joint; no swelling Left upper extremity: hand Details: tenderness Location: of the thumb Location: at the thenar eminence and at the MCP joint; no swelling Coding Level of Care Code Est Pt Prev Care 40-64y(08562) Diagnoses Annual physical exam Z00.00 Pure hypercholesterolemia E78.00 Elevated TSH R79.89 Impaired fasting glucose R73.01 Vitamin D deficiency E55.9 Bilateral thumb pain M79.644; M79.645 Recurrent nonproductive cough R05.8 Viral wart on finger B07.9 Ex-smoker Z87.891 Obesity (BMI 30-39.9) E66.9 Breast cancer screening by mammogram Z12.31 Cervical cancer screening Z12.4 Additional Codes PHQ-9 - 21101 - PHQ-9 Billing: Yes ([id number]) Assessment & Plan Assessment & Plan (1) Annual physical exam: Code(s): Z00.00 - Encounter for general adult medical examination without abnormal findings Category: Medical Plan: Check labs She is up-to-date with her colon cancer screening and will be due for repeat colonoscopy in 2026 She is past due for her yearly gynecology exam/pap smear and annual mammography and these will be ordered for her (2) Pure hypercholesterolemia: Code(s): E78.00 - Pure hypercholesterolemia, unspecified Category: Medical Plan: Reinforced low cholesterol diet Patient's total cholesterol and LDL cholesterol were both elevated (219 and 136 mg/dl respectively) when her cholesterol levels were last checked in May 2023 Will have her recheck her labs and fasting lipids JAMEE for follow up (3) Elevated TSH: Code(s): R79.89 - Other specified abnormal findings of blood chemistry Category: Medical Plan: Her TSH was slightly elevated but her free T4 was normal when she last had her labs done back in May 2023 Will recheck her TFTs JAMEE for follow up (4) Impaired fasting glucose: Code(s): R73.01 - Impaired fasting glucose Category: Medical Plan: Her FBS was slightly elevated at 107 mg/dl on her labs back in May 2023 Will recheck her FBS for follow up; will also check her HgbA1c for further evaluation (5) Vitamin D deficiency: Code(s): E55.9 - Vitamin D deficiency, unspecified Category: Medical Plan: She is advised that her Vitamin D level was low on her labs done last year Will have her start taking Vitamin D3 2000 units QD - she is made aware that her insurance may not cover this as she can get this OTC without a prescription (6) Bilateral thumb pain: Code(s): M79.644 - Pain in right finger(s); M79.645 - Pain in left finger(s) Category: Medical Plan: Have advised patient that she likely has tenosynovitis of both thumbs (De Quervain's) or osteoarthritis Will send her for x-rays of both hands/thumbs JAMEE for further evaluation Have advised her that further recommendations will follow once her x-rays help us establish the exact nature of her recurrent thumb(s) issue (7) Recurrent nonproductive cough: Code(s): R05.8 - Other specified cough Category: Medical Plan: Patient is advised that based on her lung exam today, she likely has some residual bronchitis from her recent respiratory infection and this is most likely the reason for her recurrent cough Will send her for chest x-rays JAMEE and if her chest x-rays reveals findings consistent with what we just discussed, then I will send in some Abx Rx to help her get this cleared up JAMEE (8) Viral wart on finger: Code(s): B07.9 - Viral wart, unspecified Category: Medical Plan: Will refer her to dermatology for further evaluation and management (9) Ex-smoker: Comment: quit 05/15/2024 - smoked 1 PPD x 28 yrs Code(s): Z87.891 - Personal history of nicotine dependence Category: Social Hx Plan: Patient states that she quit smoking about 3 months ago now and she is counseled on ways to help her remain smoke-free and avoid any relapse Have also advised her that she will be sent for lung cancer screening in a few years when she becomes eligible (10) Obesity (BMI 30-39.9): Code(s): E66.9 - Obesity, unspecified Category: Medical Plan: Reinforced diet/exercise as tolerated/lose weight - states that she has lost about 15 to 18 pounds since her last visit through diet and lifestyle changes she has made over the past year (11) Breast cancer screening by mammogram: Code(s): Z12.31 - Encounter for screening mammogram for malignant neoplasm of breast Category: Medical Plan: Will send her for annual mammography - she has not had one done in a few years now (12) Cervical cancer screening: Code(s): Z12.4 - Encounter for screening for malignant neoplasm of cervix Category: Medical Plan: Will also refer her to gynecology to update her annual pap smear and gynecology exam Plan Follow up in 6 months Orders: Orders MM tomosynthesis screening BI Today Z12.31 - Encounter for screening mammogram for malignant neoplasm of breast XR hand LT min 3V Today M79.641 - Pain in right hand, M79.642 - Pain in left hand, M79.644 - Pain in right finger(s), M79.645 - Pain in left finger(s) Complete Blood Count Auto Diff Today D64.9 - Anemia, unspecified, Z00.00 - Encounter for general adult medical examination without abnormal findings Lipid Panel Today E78.00 - Pure hypercholesterolemia, unspecified, Z00.00 - Encounter for general adult medical examination without abnormal findings TSH reflex Free T4 Today E78.00 - Pure hypercholesterolemia, unspecified, Z00.00 - Encounter for general adult medical examination without abnormal findings UA CC w/rflx Micro + Cult Today R30.0 - Dysuria, Z00.00 - Encounter for general adult medical examination without abnormal findings Hemoglobin A1c Today E11.9 - Type 2 diabetes mellitus without complications, Z00.00 - Encounter for general adult medical examination without abnormal findings XR chest 2V Today J98.8 - Other specified respiratory disorders XR hand RT min 3V Today M79.641 - Pain in right hand, M79.642 - Pain in left hand, M79.644 - Pain in right finger(s), M79.645 - Pain in left finger(s) Comprehensive [place]. 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
== END 2024-08-14 16:56 | disposition home or self-care (01) ==
PROVIDERS: PCP Internal Medicine; Visit Provider Internal Medicine
DX: Z00.00 Encounter for general adult medical examination without abnormal findings (principal); E78.00 Pure hypercholesterolemia, unspecified; E66.9 Obesity, unspecified; Z68.35 Body mass index [BMI] 35.0-35.9, adult; R73.01 Impaired fasting glucose; E55.9 Vitamin D deficiency, unspecified; M79.644 Pain in right finger(s); M79.645 Pain in left finger(s); R05.8 Other specified cough; B07.9 Viral wart, unspecified; Z87.891 Personal history of nicotine dependence; Z12.31 Encounter for screening mammogram for malignant neoplasm of breast

== ENCOUNTER → 2024-08-14 16:12 | Outpatient (BNVA) | payer OTHER, SELFPAY | PROVIDERS: PCP Internal Medicine; Visit Provider Internal Medicine | DX: Z00.00 Encounter for general adult medical examination without abnormal findings (principal); E78.00 Pure hypercholesterolemia, unspecified; R79.89 Other specified abnormal findings of blood chemistry; R73.01 Impaired fasting glucose; E55.9 Vitamin D deficiency, unspecified; M79.644 Pain in right finger(s); M79.645 Pain in left finger(s); R05.8 Other specified cough; B07.9 Viral wart, unspecified; E66.9 Obesity, unspecified; F41.9 Anxiety disorder, unspecified; N39.3 Stress incontinence (female) (male); Z79.899 Other long term (current) drug therapy; Z87.891 Personal history of nicotine dependence | CPT/HCPCS: 96127 ==

== ENCOUNTER 2024-09-07 09:55 | Outpatient (REF) | payer OTHER, SELFPAY ==
[2024-09-07 10:06] LABS: MANUAL DIFF FLAG NO
[2024-09-07 10:50] LABS: Basophils Percent Auto 0.7 % (0-2); Eosinophils Absolute Auto 0.2 X10*3/uL (0.0-0.4); Eosinophils Percent Auto 3.9 % (0-4); Hematocrit 46.9 % (37.0-47.0); Hemoglobin 15.3 g/dl (12.0-16.0); Imm Gran Abs Auto 0.01 X10*3/uL (0.00-0.03); Imm Gran Pct Auto 0.2 % (0.0-0.4); Lymphocytes Absolute Auto 2.4 X10*3/uL (1.2-4.9); Lymphocytes Percent Auto 40.3 % (20-40); Mean Corpuscular HGB Conc 32.6 g/dl (31.0-35.0); Mean Corpuscular Hemoglobin 31.1 pg (27.0-33.0); Mean Corpuscular Volume 95.3 fL (80.0-98.0); Mean Platelet Volume 9.8 fL (9.4-12.3); Monocytes Absolute Auto 0.4 X10*3/uL (0.1-1.2); Monocytes Percent Auto 7.1 % (2-11); Neutrophils Absolute Auto 2.8 x10*3/uL (2.0-8.3); Neutrophils Percent Auto 47.8 % (45-73); Platelet Count 289 X10*3/uL (160-400); Red Blood Count 4.92 X10*6/uL (4.20-5.50); Red Cell Distribution Width 13.3 % (11.0-16.0); White Blood Count 5.9 X10*3/uL (4.8-10.8)
[2024-09-07 11:04] LABS: Estimated Average Glucose 108 mg/dL; Hemoglobin A1C 134.8733 umol/L; Hemoglobin A1c % 5.4 % (<6.0); Total Hemoglobin (HGBA1C) 3793.0117 umol/L
[2024-09-07 11:07] LABS: Color Urine Yellow; Glucose Urine UA Negative (Negative); Leukocyte Esterase Urine Small (1+) (Negative); Nitrite Urine Negative (Negative); UMIC TRIGGER UACC YES; Urine Blood Negative (Negative); Urine Ketones Negative (Negative); Urine Protein Negative (Neg-Trace)
[2024-09-07 11:08] LABS: Appearance Urine Hazy
[2024-09-07 11:24] LABS: Bacteria Urine Trace (None Seen); Hyaline Casts Urine 0-2 /LPF (0-2); RBC Urine 0-2 /HPF (0-2); UACC Culture Trigger YES; WBC Urine 0-5 /HPF (0-5)
[2024-09-07 11:40] LABS: Alanine Aminotransferase 36 U/L (0-31); Albumin Level 4.1 g/dL (3.5-5.0); Alkaline Phosphatase 100 U/L (39-117); Anion Gap 10 (12-20); Aspartate Amino Transferase 27 U/L (5-31); Bilirubin Total 0.5 mg/dL (0.0-1.0); Blood Urea Nitrogen 12 mg/dL (9-16); Calcium 9.8 mg/dL (8.4-10.2); Carbon Dioxide 28 mmol/L (22-29); Chloride 106 mmol/L (96-108); Cholesterol 226 mg/dL (<200); Estimated Glomerular Filt Rate > 60; Glucose Fasting 100 mg/dL (60-99); HDL Cholesterol 60 mg/dL (>40); LDL Cholesterol Calculated 139 mg/dL (<100); Potassium 4.6 mmol/L (3.3-5.1); Sodium 139 mmol/L (135-145); Total Protein 7.4 g/dL (6.5-8.0); Triglycerides 136 mg/dL (<150)
[2024-09-07 11:58] LABS: TSH reflex Free T4 8.24 uIU/mL (0.32-4.0); Vitamin D 25-OH Total 21.9 ng/mL (>30)
[2024-09-07 12:39] LABS: Free T4 (Free Thyroxine) 0.85 ng/dL (0.71-1.85)
== END 2024-09-07 09:56 | disposition home or self-care (01) ==
LOC: HO.LAB 09:55
PROVIDERS: PCP Internal Medicine; Visit Provider Internal Medicine
DX: Z00.00 Encounter for general adult medical examination without abnormal findings (principal); E78.00 Pure hypercholesterolemia, unspecified; D64.9 Anemia, unspecified; E11.9 Type 2 diabetes mellitus without complications; E55.9 Vitamin D deficiency, unspecified; R30.0 Dysuria
CPT/HCPCS: 36415; 80053; 80061; 81001; 81003; 82306; 83036; 84439; 84443; 85025; 87086

== ENCOUNTER 2024-09-13 14:43 | Outpatient (REF) | payer OTHER, SELFPAY ==
[2024-09-16 10:14] LABS: HPV 16,18/45 See PAP report
== END 2024-09-13 14:44 | disposition home or self-care (01) ==
LOC: HO.LNP 14:43
PROVIDERS: PCP Internal Medicine; Visit Provider Advanced Practice Midwife
DX: Z00.00 Encounter for general adult medical examination without abnormal findings (principal); Z12.4 Encounter for screening for malignant neoplasm of cervix; Z11.51 Encounter for screening for human papillomavirus (HPV)
CPT/HCPCS: 87626; 88175

== ENCOUNTER 2024-09-13 14:43 | Outpatient (AMB) | payer OTHER, SELFPAY ==
[2024-09-13 15:01] VITALS: BP 110/62; BMI 35.1
--- NOTE | 2024-09-13 15:01 | MHC.OFFVIS ---
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 Supervisor Present Information Interpreted: clinical only Patternmaker Hand: Patternmaker Hand Present Allergies No Known Allergies Allergy (Verified 09/13/24 15:01) Medication List - Last Reconciled 09/13/24 by Melina Mo CNM bupropion HCl XL 150 mg PO QAM cholecalciferol (vitamin D3) 50 mcg PO DAILY 90 days solifenacin 5 mg PO BID 90 days Is last menstrual period known: Yes Last menstrual period: 08/23/24 HPI HPI CUPOLA CHARGER annual exam/Internal referral: Details: 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 She has delivered 3 children all delivered at [facility] were grown. She retired from [employer] last year with a early alf. 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 She quit smoking and drinking last year is working on getting healthier and she did not a lot of weight what his but then felt herself plateau so she is now doing vegetable juicing during the day and having a protein meal evening in his very good. She is working out on a treadmill at home and last August she did the hot chocolate run for the 1st time felt very good about it it felt like an accomplishment she is feeling so much better since she has made these positive changes she sees Dr. Fofana and has had her blood work and she knows her blood sugars a little bit elevated but she is working on that with the weight loss and she was told she was low vitamin-D and she is taking supplement and she did have a conversation about the results, but says on balance her hdl cholesterol offsets the LDL. She has absolutely no need for any testing for STIs she broke up with her partner about a year ago but says there was no suspicion at all about extracurricular activity. Her mammogram appointment is coming up.. Her periods are normal and were regular but she had skipped 5 months this past year and then just got 1 in August. [facility] Medical History (Reviewed 09/13/24 @ 15:02 by Sinai Schultz [facility]) Anxiety Stress incontinence Obesity (BMI 30-39.9) Vitamin D deficiency Ex-smoker Tubular adenoma of colon Impaired fasting glucose Elevated TSH Pure hypercholesterolemia Iron deficiency anemia Surgical History Hx of colonoscopy Hx of cholecystectomy Family History Mother Blood clotting disorder Breast cancer Father Prostate cancer Brother No problems noted. Sister No problems noted. Social History Housing: Apartment Alcohol intake: current Alcohol intake frequency: a few times a week Alcohol type: hard liquor Patient Tobacco Use Status: Former Tobacco user Cigarette Packs Per Day: 1 e-Cigarette/Vaping Use: Never Used service: No Current occupational status: employed Cognitive needs: No Hearing needs: No Vision needs: No Female Reproductive History Menstrual Age of Menarche: 10 Duration of menses: 3-5 days Date of last menstrual period: 08/23/24 control method: none Total pregnancies: 3 Full term: 3 History of abnormal pap smear: No (2019, neg.per patient) Physical Exam Vital Signs: Last Vital Signs BP 110/62 09/13/24 15:01 BMI result Body Mass Index 35.1 Const General: healthy appearing, comfortable, no acute distress, well developed and alert Nutritional Appearance: average body habitus Orientation/consciousness: patient oriented x3 Limitations: no limitations HEENT Head: Yes normocephalic Neck Neck: Yes normal visual inspection Chest Chest palpation & inspection: normal inspection of the chest Breast/axilla inspection: normal inspection of the breasts and normal inspection of the axillae Breast/axilla palpation: normal palpation of the breasts and normal palpation of the axillae Resp Effort & Inspection: normal respiratory effort GI Inspection: Yes normal to inspection, No Abdominal wall edema and No distended Palpation (GI): Soft to palpation and nontender Other: External exam within limits vagina is pink moist cervix is multiparous pink smooth healthy appearing shiny normal-appearing moist lubrication. Cervix is long close the nontender multiparous uterus feels anteverted mobile nontender maybe slightly enlarged, we will assess with pelvic ultrasound General: Yes bladder normal to palpation External Female Exam: normal external appearance and normal appearance of the urethra Speculum Exam - Vagina: normal appearance of the vagina, normal palpation and normal vaginal discharge Speculum Exam - Cervix: normal appearance of the cervix, normal palpation and nontender Bimanual exam- vagina & uterus: normal bimanual exam, normal palpation, uterine size normal, bladder normal to palpation, consistency normal, normal palpation, uterine mobility normal, uterine shape normal, No Cervical tenderness present, non-tender and no cervical motion tenderness Bimanual Exam- Adnexa, other: normal adnexae, no masses, normal and No adnexal tenderness Neuro General: patient oriented x3 Assessment & Plan Assessment & Plan (1) Breast cancer screening by mammogram: Code(s): Z12.31 - Encounter for screening mammogram for malignant neoplasm of breast Category: Medical (2) Cervical cancer screening: Code(s): Z12.4 - Encounter for screening for malignant neoplasm of cervix Category: Medical (3) Impaired fasting glucose: Code(s): R73.01 - Impaired fasting glucose Category: Medical (4) Ex-smoker: Comment: quit 05/15/2024 - smoked 1 PPD x 28 yrs Code(s): Z87.891 - Personal history of nicotine dependence Category: Social Hx (5) Bulky or enlarged uterus: Code(s): N85.2 - Hypertrophy of uterus Category: Medical Plan -----Discussed in this visit the following: healthy balanced diet, regular and consistent exercise, getting recommended health screens, doing the best she can for her particular health concerns, kegel exercises, pap smear screening and followup recommendations, mammography screening and SBE, normal changes in cycles in her life stage--- . She has a mammogram coming up.. Discussed the option of doing a pelvic ultrasound to assess to see whether not her uterus is actually enlarged or if it is just easy to feel because of its position. We will have a tele visit after to review the results Discussed all her positive life changes that she has doing which are also between quitting smoking drinking losing weight in healthy ways and running on the treadmill she is doing awesome self-care work. We will have a follow-up visit after the ultrasound to review findings also reviewed stephanie menopausal changes and what to expect going forward. Orders: Orders US pelvic and transvaginal Today N85.2 - Hypertrophy of uterus, R73.01 - Impaired fasting glucose, Z12.31 - Encounter for screening mammogram for malignant neoplasm of breast, Z12.4 - Encounter for screening for malignant neoplasm of cervix Coding Level of Care Code New Pt Prev Care 40-64y(46418) Diagnoses Breast cancer screening by mammogram Z12.31 Cervical cancer screening Z12.4 Impaired fasting glucose R73.01 Ex-smoker Z87.891 Bulky or enlarged uterus N85.2
== END 2024-09-13 15:59 | disposition home or self-care (01) ==
PROVIDERS: PCP Internal Medicine; Visit Provider Advanced Practice Midwife
DX: Z01.419 Encounter for gynecological examination (general) (routine) without abnormal findings (principal); R73.01 Impaired fasting glucose; Z87.891 Personal history of nicotine dependence
CPT/HCPCS: 99386; 99459

== ENCOUNTER 2024-09-24 16:13 | Outpatient (REF) | payer OTHER, SELFPAY ==
--- OUTSIDE RECORDS SUMMARY | 2024-09-24 17:49 | XMS_ITS | Clinical Summary ---
Author Organization [facility] Address [address] [place] [address] Care Team Providers Care Die Designer Apprentice Name Role Phone Jadon Quinteros MD Primary Care Provider [phone] Surgical History Surgery Date Site/Laterality Comments CHOLECYSTECTOMY PROCEDURE: [place] CHOLECYSTECTOMY Medical History Medical History Date Comments Anemia DX:Anemia Family History Medical History Relation Name Comments Breast cancer Maternal Grandmother 60s Breast cancer Mother 45 Breast cancer Sister 1 52 half Breast cancer Sister 2 48 Breast cancer Sister 3 49 Breast cancer Sister 4 54 Relation Name Status Comments Father prostate ca Maternal Grandmother 60s Mother 45 breast cancer Sister 1 52 half Alive breast cancer Sister 2 48 Alive breast cancer Sister 3 49 Alive breast cancer Sister 4 54 breast cancer Sister 5 Alive Sister 6 Alive Sister 7 Alive Sister 8 Alive Social History Tobacco Use Types Packs/Day Years Used Date Smoking Tobacco: Former Cigarettes Smokeless Tobacco: Never Alcohol Use Standard Drinks/Week Comments No 0 (1 standard drink = 0.6 oz pur e alcohol) Sex and Gender Information Value Date Recorded Sex Assigned at Not on file Gender Identity Not on file Sexual Orientation Not on file Obstetrics History Plan of Treatment Health Maintenance Due Date Last Done Comments Cervical Cancer Screening: P ap Smear 1995 Hepatitis B Vaccines (3 of 3 - 19+ 3-dose series) 10/29/2008 06/30/2008, 04/28/2008 Breast Cancer Screening 08/14/2021 08/14/20 19, 11/28/2016, 11/03/2016 Zoster Vaccines (1 of 2) 2024 COVID-19 Vaccine ( - 2023-2 5 season) 2024 Influenza Vaccine (#1) 2024 DTaP,Tdap,and Td Vaccines (4 - Td or Tdap) 08/07/2029 08/07/2019, 04/28/2008, 09/04/2003 HIB Vaccines Aged Out No longer eligi ble based on patient's age to complete this topic HPV Vaccines Aged Out No longer eligi ble based on patient's age to complete this topic Hepatitis A Vaccines Aged Out No long er eligible based on patient's age to complete this topic IPV Vaccines Aged Out No longer eligi ble based on patient's age to complete this topic MMR Vaccines Aged Out No longer eligi ble based on patient's age to complete this topic Meningococcal ACWY Vaccine Aged Out N o longer eligible based on patient's age to complete this topic Pneumococcal Vaccine: Pediatrics (0 to 5 Years) and At-Risk Patients (6 to 64 Years) Aged Out No longer eligible b ased on patient's age to complete this topic RSV Immunization Patients Under 20 months Aged Out No longer eligible b ased on patient's age to complete this topic Varicella Vaccines Aged Out No longer eligible based on patient's age to complete this topic Procedures Procedure Name Priority Date/Time Associated Diagnosis Comments DX MAMMO INCL CAD BI Routine 08/14/2019 2:07 PM EST Encounter for screening mammogram for malignant neoplasm of breast from Last 3 Months or Most Recently Relevant to Health Maintenance Results * DX MAMMO INCL CAD BI (08/14/2019 2:07 PM EST) Anatomical Region Laterality Modality Mammography 08/07/2019 1:42 PM EST Narrative 08/14/2019 2:23 PM EST This is a summary report. The complete report is available in the patient's medical record. If you cannot access the medical record, please contact the sending organization for a detailed fax or copy. Bilateral diagnostic digital mammogram History: Follow-up bilateral nodules seen on baseline mammogram of 11/03/2016. ??Patient underwent bilateral diagnostic mammogram and bilateral breast ultrasound on 11/28/2016. ??Patient never returned for the recommended bilateral mammogram and left breast ultrasound. Full field digital mammography, reviewed with CAD and compared to previous. ??The breasts are composed of fatty and fibroglandular tissue. ??No suspicious mass, architectural distortion or suspicious calcifications are identified. ??The bilateral asymmetric densities seen on the previous study are not significantly changed. IMPRESSION: : No mammographic evidence of malignancy. ??Stable bilateral focal asymmetries. ??Follow-up ultrasound was felt not to be necessary. BIRADS 2-benign 5 year breast cancer risk assessment 4.3 % Lifetime breast cancer risk assessment 40.9 % Breast cancer risk category High (>20%) Procedure Note Namrata Saleem - 08/23/2022 This is a summary report. The complete report is available in thepatient's medical record. If you cannot access the medical record, pleasecontact the sending organization for a detailed fax or copy. Bilateral diagnostic digital mammogram History: Follow-up bilateral nodules seen on baseline mammogram of11/03/2016. Patient underwent bilateral diagnostic mammogram and bilateralbreast ultrasound on 11/28/2016. Patient never returned for therecommended bilateral mammogram and left breast ultrasound. Full field digital mammography, reviewed with CAD and compared toprevious. The breasts are composed of fatty and fibroglandular tissue.No suspicious mass, architectural distortion or suspicious calcificationsare identified. The bilateral asymmetric densities seen on the previousstudy are not significantly changed. IMPRESSION: : No mammographic evidence of malignancy. Stable bilateral focalasymmetries. Follow-up ultrasound was felt not to be necessary. BIRADS 2-benign 5 year breast cancer risk assessment 4.3 % Lifetime breast cancer risk assessment 40.9 % Breast cancer risk category High (>20%) Vonda RUIZ IMG BI PROCEDURES from Last 3 Months or Most Recently Relevant to Health Maintenance Care Teams Die Designer Apprentice Relationship Specialty Start Date End Date Jadon Quinteros MD [address] [place] [address] PCP - General Internal Medicine 10/07/15
== END 2024-09-24 16:14 | disposition home or self-care (01) ==
LOC: HO.MAMMO 16:13
PROVIDERS: PCP Internal Medicine; Visit Provider Internal Medicine
DX: Z12.31 Encounter for screening mammogram for malignant neoplasm of breast (principal)
CPT/HCPCS: 77063; 77067

== ENCOUNTER → 2024-09-24 16:30 | Outpatient (BNV) | payer OTHER, SELFPAY | PROVIDERS: PCP Internal Medicine; Visit Provider Internal Medicine | DX: Z12.31 Encounter for screening mammogram for malignant neoplasm of breast (principal) | CPT/HCPCS: 77063; 77067 ==

== ENCOUNTER 2025-02-05 07:39 | Outpatient (AMB) | payer OTHER, SELFPAY ==
--- NOTE | 2025-02-05 07:41 | A.OFFVIS_ITS ---
Intake Visit Reasons: 6M/ PVR Intake Note: Pt presents to the office today for a 6 month follow up PVR/incontinence. Urology meds:Solifenacin Blood thinners:None PVR:43ml Allergies No Known Allergies Allergy (Verified 02/05/25 10:10) Medication List - Last Reconciled 02/05/25 by THAO Fields bupropion HCl SR 150 mg PO QAM cholecalciferol (vitamin D3) 50 mcg PO DAILY 90 days solifenacin 5 mg PO BID 90 days HPI Comments Details: Maria C is a very pleasant 49-year-old female patient. She has a past medical history of anxiety, stress incontinence, obesity, vitamin-D deficiency, hypercholesteremia, and iron deficiency anemia. She presents to the office today for a follow up of her lower urinary tract symptoms. In discussion with the patient today she reports to be doing and feeling well. She discusses her recent trip to [place]. She reports compliance with VESIcare 5 mg daily and does feel this has been helpful in episodes of urinary urgency and frequency she had been experiencing. She does continue to report episodes of stress incontinence. We did discussed further treatment options and risks and benefits of these treatment options. Previously plan was to undergo an office urodynamics however patient felt procedure was invasive in did not wish to proceed. We did discuss this at length throughout today's office visit. She feels that although she experiences stress incontinence she is self managing in does not feel bothered by her symptoms. In office urinalysis results reviewed with the patient today. 3+ leukocytes negative nitrates. When asked she denies any UTI like symptoms. PVR 43 mL. Patient with a previous history of microscopic hematuria and has undergone CT urogram 06/26 that noted symmetric nephrograms. No renal mass. Symmetric urinary excretion. No filling defects in the collecting systems or ureters. The bladder with no bladder calculus or discrete bladder mass. No explanation for hematuria. No nephrolithiasis or renal mass. Normal CT urogram. In office urinalysis results reviewed with the patient today. No microscopic hematuria noted. She discusses how well she is feeling with her weight loss. She denies nocturia, hematuria, dysuria, foul smelling urine, changes to urinary stream, flank pain, fever, and or chills. She has a history of 3 vaginal births of average sized babies and somewhat long labors. Discussed at length potential causes for microscopic hematuria as well as stress incontinence. She otherwise offers no other issues or concerns at this time. [facility] Medical History Anxiety Stress incontinence Obesity (BMI 30-39.9) Vitamin D deficiency Ex-smoker Tubular adenoma of colon Impaired fasting glucose Elevated TSH Pure hypercholesterolemia Iron deficiency anemia Surgical History Hx of colonoscopy Hx of cholecystectomy Family History Mother Blood clotting disorder Breast cancer Father Prostate cancer Brother No problems noted. Sister No problems noted. Social History Housing: Apartment Alcohol intake: current Alcohol intake frequency: a few times a week Alcohol type: hard liquor Patient Tobacco Use Status: Former Tobacco user Cigarette Packs Per Day: 1 e-Cigarette/Vaping Use: Never Used service: No Current occupational status: employed Cognitive needs: No Hearing needs: No Vision needs: No Female Reproductive History Menstrual Age of Menarche: 10 Review of Systems Const All systems reviewed & are unremarkable except as noted in HPI and below Physical Exam Const General: cooperative, healthy appearing, comfortable, no acute distress, well developed, alert and awake Orientation/consciousness: patient oriented x3 Limitations: no limitations HEENT Head: Yes normal to inspection, Yes normocephalic and Yes atraumatic Ears: hearing grossly normal bilaterally Eyes General: appearance normal, both eyes and all related structures Neck Neck: Yes normal visual inspection and Yes trachea midline Chest Chest palpation & inspection: normal inspection of the chest Resp Effort & Inspection: normal respiratory effort and able to speak in complete sentences Cardio Rate: regular rate GI Inspection: Yes normal to inspection General: Yes no CVA tenderness Back/Spine/Pelvis Back: no CVA tenderness Skin General skin exam: no rashes or lesions noted Neuro General: patient oriented x3 Extrem General: Yes normal to inspection Psych Appearance: grossly normal and well kempt Mental Status: mental status grossly normal Speech and movement: Normal speech and movement present and Clear speech present Affect: normal affect Attitude: cooperative Thought process: Normal thought process present Thought content: Normal thought content present Insight: Good insight present (Psych) Judgement: Good judgement present (Psych) Office Procedures Post Void Residual Post Residual Void Post Void Residual (PVR): 43 05562-Gpyy Void Residual by ultrasound Results AMB Urinalysis, Automated UA Leukoctes 500 Brando/uL Last Edit by Karla Mcintyre CMA on 02/05/25 07:52 UA Nitrite Negative Last Edit by Karla Mcintyre CMA on 02/05/25 07:52 UA Urobilinogen 0.2 mg/dL Last Edit by Karla Mcintyre CMA on 02/05/25 07:52 UA Protein 15 mg/dL Last Edit by Karla Mcintyre, DOMINGA on 02/05/25 07:52 UA pH 7.0 Last Edit by Karla Mcintyre, DOMINGA on 02/05/25 07:52 UA Blood 0 Navi/uL Last Edit by Karla Mcintyre, DOMINGA on 02/05/25 07:52 UA Specific Rindge 1.015 Last Edit by Karla Mcintyre CMA on 02/05/25 07:52 UA Ketone Negative Last Edit by Karla Mcintyre CMA on 02/05/25 07:52 UA Bilirubin 0 mg/dL Last Edit by Karla Mcintyre CMA on 02/05/25 07:52 UA Glucose 0 mg/dL Last Edit by Karla Mcintyre CMA on 02/05/25 07:52 Results Reviewed Results Reviewed: Laboratory Last Values Urine pH (Auto) 7.0 02/05/25 07:47 Specific Rindge (Auto) 1.015 02/05/25 07:47 Urine Protein (Auto) 15 mg/dL 02/05/25 07:47 Glucose (UA)(Auto) 0 mg/dL 02/05/25 07:47 Urine Ketones (Auto) Negative 02/05/25 07:47 Urine Blood (Auto) 0 Navi/uL 02/05/25 07:47 Urine Nitrite (Auto) Negative 02/05/25 07:47 Urine Bilirubin (Auto) 0 mg/dL 02/05/25 07:47 Urine Urobilinogen (Auto) 0.2 mg/dL 02/05/25 07:47 Leukocyte Esterase (Auto) 500 Brando/uL 02/05/25 07:47 Assessment & Plan Assessment & Plan (1) Microscopic hematuria: Code(s): R31.29 - Other microscopic hematuria Category: Medical (2) Stress incontinence: Code(s): N39.3 - Stress incontinence (female) (male) Category: Medical Plan In office urinalysis results reviewed with the patient today; as noted above. PVR 43 mL. Continue VESIcare; refill provided We discussed potential causes of stress incontinence as well as history of microscopic hematuria. All questions were answered. Continue pelvic floor exercises at home. We discussed at length in office urodynamics; risks and benefits; information was provided She reports be happy with current voiding parameters. Follow-up in 6 months with PVR; or sooner with any issues, concerns, and or questions. Orders: Orders AMB Urinalysis Automated Today N85.2 - Hypertrophy of uterus AMB Post Void Residual by ultrasound Today N85.2 - Hypertrophy of uterus Medications: Refilled solifenacin 5 mg PO BID 90 days 180 tabs 3RF N39.3 - Stress incontinence (female) (male) Patient Instructions: The patient had an opportunity to ask questions regarding the treatment plan. All questions were answered. Physical exam, labs, and imaging were discussed and reviewed in detail. As well as risks, benefits, and discussion of treatment choices. No major barriers to understanding were identified. The patient expressed understanding and agreement with the above treatment plan. The patient was made aware they should contact our office by phone for worsening of their current condition, the appearance of new symptoms, or with any questions or concerns. Compliance is encouraged with any medications and follow up testing that is ordered. It is a privilege to be allowed the opportunity to participate in? your urological care.? Again, if you have any questions or concerns If you have any questions or concerns please do not hesitate to contact me. The office is [phone]. This note is constructed using voice recognition software. While every effort has been made to ensure accuracy quality control technician errors may have been included. Yours sincerely, THAO Fields Coding Level of Care Code Est Pt Level 3 (32252) Diagnoses Microscopic hematuria R31.29 Stress incontinence N39.3 CPT Codes Post Residual Void - PVR CPT Code: 17029-Ypsm Void Residual by ultrasound ([id number])
== END 2025-02-05 08:36 | disposition home or self-care (01) ==
LOC: HO.HUSH 07:40
PROVIDERS: PCP Internal Medicine; Visit Provider Nurse Practitioner Family
DX: R31.29 Other microscopic hematuria (principal); N39.3 Stress incontinence (female) (male); N85.2 Hypertrophy of uterus
CPT/HCPCS: 99213

== ENCOUNTER → 2025-02-05 07:39 | Outpatient (BNVA) | payer OTHER, SELFPAY | PROVIDERS: PCP Internal Medicine; Visit Provider Nurse Practitioner Family | DX: N85.2 Hypertrophy of uterus (principal); R31.29 Other microscopic hematuria; N39.3 Stress incontinence (female) (male) | CPT/HCPCS: 51798; 81003 ==

== ENCOUNTER 2025-02-24 15:31 | Emergency (ER) | payer OTHER, SELFPAY ==
--- NOTE | ~2025-02-24 | US_ITS ---
CLINICAL HISTORY: pain Left lower extremity duplex venous Doppler Comparison: None Technique: Grayscale/Color/Duplex Doppler sonographic evaluation of the deep venous system within the left lower extremity. Findings: Left lower extremity Common femoral vein: Patent bilaterally CFV/GSV junction: Patent Femoral vein: Patent Popliteal vein: Patent Infrapopliteal veins: Patent where seen Soft tissue: No focal abnormality. Morphologically benign-appearing inguinal lymph nodes on the left. Impression: 1. Negative for left lower extremity DVT. 2. No Matthew's cyst This document has been electronically signed by: Dilshad Carpio MD on 02/24/2025 18:01:26
--- NOTE | 2025-02-24 15:51 | ED.GENADULT ---
HPI - General Adult General Chief complaint: Extremity Injury, Lower Stated complaint: sent over for ultrasound for blood clot left leg Related Data Previous Rx's ?Medication ?Instructions ?Recorded cholecalciferol (vitamin D3) 50 50 mcg PO DAILY 90 days #90 caps 08/14/24 mcg (2,000 unit) capsule bupropion HCl 150 mg tablet,12 hr 150 mg PO QAM #30 tabs 10/09/24 sustained-release solifenacin 5 mg tablet 5 mg PO BID 90 days #180 tabs 02/05/25 Allergies Allergy/AdvReac Type Severity Reaction Status Date / Time No Known Allergies Allergy Verified 02/24/25 15:54 [facility] Past Medical History Medical History Anxiety Stress incontinence Obesity (BMI 30-39.9) Vitamin D deficiency Ex-smoker Tubular adenoma of colon Impaired fasting glucose Elevated TSH Pure hypercholesterolemia Iron deficiency anemia Surgical History Hx of colonoscopy Hx of cholecystectomy Family History Family History Mother Blood clotting disorder Breast cancer Father Prostate cancer Brother No problems noted. Sister No problems noted. Social History Social History Housing: Apartment Alcohol intake: current Alcohol intake frequency: a few times a week Alcohol type: hard liquor Patient Tobacco Use Status: Former Tobacco user Cigarette Packs Per Day: 1 e-Cigarette/Vaping Use: Never Used Advance Directives: No Advance Directives Information Provided: No service: No Current occupational status: employed Cognitive needs: No Hearing needs: No Vision needs: No Physical Exam ED Vital Signs: BMI result Body Mass Index 36.2 Course Course Course Narrative: This is an RME: Additional HPI, ROS, PE not included below will be deferred to primary provider. RME assessment and note performed by: Olive Callaway PA-C This is a 22-wmsz-cdu-female, with a hx of anxiety, who presents to the ER for ultrasound to r/o DVT. Reporting pain in the left inner groin started on 01/14. Recent travel to [place]. Former smoker. No hx blood clots or cancer history. Plan: US Reevaluation(s) Reevaluation #1: Patient left without completing treatment. Discharge Plan Discharge Clinical Impression: Leg pain Patient Disposition: Left W/O Completing Treatment Prescriptions: No Action bupropion HCl 150 mg tablet sustained-release 12 hr 150 mg PO QAM Qty: 30 3RF cholecalciferol (vitamin D3) 50 mcg (2,000 unit) capsule 50 mcg PO DAILY 90 Days Qty: 90 3RF solifenacin 5 mg tablet 5 mg PO BID 90 Days Qty: 180 3RF Discharge Date/Time: 02/24/25 21:15
[2025-02-24 15:52] VITALS: BP 116/76; PULSE 69; RESP 18; TEMP 36.3; O2SAT 97; BMI 36.2
== END 2025-02-24 21:15 | disposition left against medical advice (07) ==
PROVIDERS: Emergency Provider Emergency Medicine; PCP Internal Medicine
DX: M79.605 Pain in left leg (principal); R60.0 Localized edema; Z87.891 Personal history of nicotine dependence
CPT/HCPCS: 93971; 99281; 99284

== ENCOUNTER → 2025-02-24 15:53 | Outpatient (BNV) | payer OTHER, SELFPAY | PROVIDERS: PCP Internal Medicine; Visit Provider Radiology Diagnostic Radiology | DX: M79.605 Pain in left leg (principal) | CPT/HCPCS: 93971 ==

== ENCOUNTER 2025-03-24 08:19 | Outpatient (AMB) | payer OTHER, SELFPAY ==
[2025-03-24 08:23] VITALS: BP 114/86; PULSE 71; TEMP 36.2; O2SAT 96; BMI 36.3
--- NOTE | 2025-03-24 08:23 | MHC.PC.OV ---
Vital Signs 03/24/25 08:23 Height 5 ft 1 in Weight 192 lb 6 oz BMI 36.3 BP 114/86 Blood Pressure Location Lt brachial Position Sitting Pulse 71 Pulse Source Pulse Oximeter Temp 97.1 F Temp Source Temporal Artery Scan Pulse Oximetry (%) 96 Oxygen Delivery Method Room Air Intake Visit Reasons: 6 month f/u Allergies No Known Allergies Allergy (Verified 03/24/25 08:30) Medication List - Last Reconciled 03/24/25 by SIRIA Figueroa bupropion HCl SR 150 mg PO QAM cholecalciferol (vitamin D3) 50 mcg PO DAILY 90 days solifenacin 5 mg PO BID 90 days Tobacco use date assessed: 03/24/25 Dental Screening Dental Screen Date: 03/24/25 Did you have a dental visit in the last 12 months?: Yes Did you have a dental problem in the last 6 months where you did not have access to dental care?: No Was dental information given to patient?: Patient has dentist HPI 6 month f/u HPI Details The patient is a 50-year-old female presenting for follow up appointment She presenting with pain in the left leg and back. The pain began in early January after a trip to [place], where she engaged in extensive walking, including climbing the [place]. The pain is described as a sharp, shooting sensation that originates from the lower left back and radiates to the left groin, rendering her unable to walk when it occurs. The patient reports that the pain subsides when pressure is applied to a specific area, and it is exacerbated by walking. She visited the emergency room due to concerns about blood clots, where an ultrasound was performed, revealing no clots but identifying a benign-appearing inguinal lymph node. The patient has been experiencing subclinical hypothyroidism, with elevated TSH levels but normal T4, and reports no symptoms such as fatigue. She has started a vitamin D supplement following a noted deficiency in her previous labs. She tried to take ibuprofen and Tylenol but none of these medications worked [facility] Medical History Anxiety Stress incontinence Obesity (BMI 30-39.9) Vitamin D deficiency Ex-smoker Tubular adenoma of colon Impaired fasting glucose Elevated TSH Pure hypercholesterolemia Iron deficiency anemia Surgical History Hx of colonoscopy Hx of cholecystectomy Family History Mother Blood clotting disorder Breast cancer Father Prostate cancer Brother No problems noted. Sister No problems noted. Social History Housing: Apartment Alcohol intake: current Alcohol intake frequency: a few times a week Alcohol type: hard liquor Patient Tobacco Use Status: Former Tobacco user Cigarette Packs Per Day: 1 e-Cigarette/Vaping Use: Never Used service: No Current occupational status: employed Cognitive needs: No Hearing needs: No Vision needs: No Female Reproductive History Menstrual Age of Menarche: 10 Questionnaire PHQ-9 Over the last 2 weeks, how often have you been bothered by any of the following problems? 1. Little interest or pleasure in doing things: not at all 2. Feeling down, depressed, or hopeless: not at all 3. Trouble falling or staying asleep, or sleeping too much: not at all 4. Feeling tired or having little energy: not at all 5. Poor appetite or overeating: not at all 6. Feeling bad about yourself - or that you are a failure or have let yourself or your family down: not at all 7. Trouble concentrating on things, such as reading the newspaper or watching television: not at all 8. Moving or speaking so slowly that other people could have noticed. Or the opposite - being so fidgety or restless that you have been moving around a lot more than usual: not at all 9. Thoughts that you would be better off or of hurting yourself in some way: not at all Total score: 0 Depression Screening Interpretation: Negative Depression Screening Done: Yes 67428 - PHQ-9 Billing: Yes Source: Developed by Drs. Hugo Robertson, Ashley Otero, Mark Conroy and colleagues, with an educational robert from [employer]. Thrive Questionnaire Date Thrive assessed: 03/24/25 I am a: Patient What is your living situation today?: I have a steady place to live Within the past 12 months, did the food you bought not last and you didn't have the money to get more?: Never true Within the past 12 months, did you worry whether your food would run out before you got money to buy more?: Never true Do you have trouble paying for medicines?: No Do you have trouble getting transportation to medical appointments?: No Do you have trouble paying your heating and electricity bill?: No Do you have trouble taking care of your child, family member or friend?: No Do you have trouble with day-to-day activities such as bathing, preparing meals, shopping, managing finances, etc.?: No Are you currently unemployed and looking for a job?: No Are you interested in more education?: No Please select the resources that you would like help with: None Currently or been in a relationship where the following occur: No concerns reported THRIVE Score: 0 AUDIT C Alcohol Use Questionnaire (AUDIT-C) 1. How often do you have a drink containing alcohol?: Never 3. How often do you have six or more drinks on one occasion?: Never Total Score: 0 MATIAS-7 AMB Questionnaire MATIAS-7 Date MATIAS - 7 assessed: 03/24/25 Feeling nervous, anxious, or on edge: 0 = Not at all Not being able to stop or control worryin = Not at all Worrying too much about different things: 0 = Not at all Trouble relaxin = Not at all Being so restless that it is hard to sit still: 0 = Not at all Becoming easily annoyed or irritable: 0 = Not at all Feeling afraid as if something awful might happen: 0 = Not at all Total MATIAS-7 score (0-4 normal; 5-9 mild; 10-14 moderate; 15-21 severe): 0 Source: Developed by Drs. Hguo Robertson, Ashley Otero, Mark Conroy and colleagues, with an educational robert from [employer]. MATIAS-7 Assessment Billing MATIAS-7 Assessment Tool: MATIAS-7 Assessment 60877 Review of Systems Const Denies headache(s) Eyes Denies loss of vision ENT Denies vertigo, Denies dizziness, Denies headache(s) and Denies sore throat Card Denies chest pain, Denies leg edema and Denies lightheadedness Resp Denies cough, Denies hemoptysis and Denies wheezing GI Denies abdominal pain, Denies melena, Denies constipation, Denies diarrhea and Denies vomiting Denies urinary frequency, Denies dysuria and Denies urinary urgency Musc Reports back pain (left lower back radiating into her left groin area with activity), Reports arthralgias (left groin area), Denies joint swelling, Denies numbness and Denies tingling Neuro Denies Abnormal speech present, Denies behavioral changes, Denies vertigo, Denies dizziness, Denies headache(s), Denies loss of vision, Denies memory loss, Denies numbness and Denies tingling Psych Denies anxiety, Denies behavioral changes, Denies depression, Denies memory loss and Denies panic attacks Ricardo/Lymph Denies easy bleeding and Denies easy bruising Aller/Immun Denies wheezing Physical exam (Primary Care) Vital Signs: Last Vital Signs Temp 97.1 F 03/24/25 08:23 Pulse 71 03/24/25 08:23 BP 114/86 03/24/25 08:23 Pulse Ox 96 03/24/25 08:23 Oxygen Delivery Method Room Air 03/24/25 08:23 BMI result Body Mass Index 36.3 Tobacco/Smoking Status: Tobacco use Status Tobacco use date assessed 03/24/25 03/24/25 08:27 Patient Tobacco Use Status Former Tobacco user 03/24/25 08:27 e-Cigarette/Vaping Use Never Used 03/24/25 08:27 PHQ-9: PHQ-9 Score PHQ-9: Total score 0 03/24/25 08:32 Depression Screening Interpretation: Negative Thrive Assessment: Date of Thrive Assessment Date Thrive assessed 03/24/25 03/24/25 08:27 Currently or been in a relationship where the following occur: No concerns reported Const General: healthy appearing, no acute distress, alert and awake Nutritional Appearance: well nourished Orientation/consciousness: oriented to person, oriented to place and oriented to time HENMT Ears: TM's normal bilaterally General nose exam: Normal nasal mucous membranes and turbinates present Eyes Conjunctivae: conjunctivae normal Sclerae: sclerae normal Pupils: Equal, round and reactive pupils present Neck Neck: Yes no lymphadenopathy and Yes no JVD Thyroid: Thyroid normal Carotids: no bruits Resp Effort & Inspection: normal respiratory effort and not tachypneic Auscultation: no crackles, no rales, no rhonchi and no wheezes Cardio Rate: regular rate Rhythm: regular rhythm Heart sounds: no murmurs and normal S1 and S2 GI Palpation (GI): Soft to palpation, nontender, no hepatomegaly and no splenomegaly Auscultation: normal bowel sounds General: Yes no CVA tenderness Back/Spine/Pelvis Back: no CVA tenderness Thoracic/Lumbar Spine: No lumbar spinal tenderness Sacroiliac joints: on the left (pain subsides with pressure to the left groin area) nontender Skin General skin exam: no rashes or lesions noted and dry skin Neuro General: oriented to person, oriented to place and oriented to time Cranial nerves: Yes Equal, round and reactive pupils present Speech: No Abnormal speech present Gait exam (Neuro): Normal gait present Motor exam (neuro): no tremor noted Extrem Right upper extremity: full ROM Left upper extremity: full ROM Right lower extremity: full ROM; no edema Left lower extremity: full ROM; no edema Psych Mental Status: mental status grossly normal Speech and movement: Normal speech and movement present Affect: normal affect Attitude: cooperative Thought process: Normal thought process present Results Reviewed Results Reviewed: Laboratory Tests 09/07/24 09/07/24 02/05/25 10:02 10:05 07:47 WBC 5.9 RBC 4.92 Hgb 15.3 Hct 46.9 MCV 95.3 MCH 31.1 MCHC 32.6 RDW 13.3 Plt Count 289 MPV 9.8 Sodium 139 Potassium 4.6 Chloride 106 Carbon Dioxide 28 Anion Gap 10 L BUN 12 Creatinine 0.75 Estimated GFR > 60 Fasting Glucose 100 H Estimat Average Glucose 108 Hemoglobin A1c % 5.4 Calcium 9.8 Total Bilirubin 0.5 AST 27 ALT 36 H Alkaline Phosphatase 100 Total Protein 7.4 Albumin 4.1 Triglycerides 136 Cholesterol 226 H LDL Cholesterol, Calc 139 H HDL Cholesterol 60 25-OH Vitamin D Total 21.9 L TSH 8.24 H Free T4 0.85 Urine Color Yellow Urine Appearance Hazy Urine pH 7.0 Urine pH (Auto) 7.0 Ur Specific [place] 1.020 Specific [place] (Auto) 1.015 Urine Protein Negative Urine Protein (Auto) 15 Urine Glucose (UA) Negative Glucose (UA)(Auto) 0 Urine Ketones Negative Urine Ketones (Auto) Negative Urine Blood Negative Urine Blood (Auto) 0 Urine Nitrite Negative Urine Nitrite (Auto) Negative Urine Bilirubin (Auto) 0 Ur Leukocyte Esterase Small (1+) H Urine Urobilinogen (Auto) 0.2 Leukocyte Esterase (Auto) 500 Urine RBC 0-2 Urine WBC 0-5 Ur Squamous Epith Cells 6-10 Urine Bacteria Trace Hyaline Casts 0-2 Coding Level of Care Code Est Pt Level 4 (67463) Diagnoses Pure hypercholesterolemia E78.00 Anxiety F41.9 Elevated fasting glucose R73.01 Subclinical hypothyroidism E03.8 Obesity (BMI 30-39.9) E66.9 Vitamin D deficiency E55.9 Acute left-sided low back pain without sciatica M54.50 Back pain laterality: left Chronicity: acute Sciatica presence: without sciatica Additional Codes MATIAS-7 Assessment Billing - MATIAS-7 Assessment Tool: MATIAS-7 Assessment 30224 ([id number]) PHQ-9 - 04378 - PHQ-9 Billing: Yes ([id number]) Time Spent (min) 39 Assessment & Plan Assessment & Plan (1) Pure hypercholesterolemia: Code(s): E78.00 - Pure hypercholesterolemia, unspecified Category: Medical Plan: The patient LDL showed slight elevation to 139 on her last labs six-month ago. Lipid panel ordered for the patient to complete as soon as possible to re-evaluate. Encouraged low-cholesterol diet and activity as tolerated (2) Anxiety: Code(s): F41.9 - Anxiety disorder, unspecified Category: Medical Plan: Encouraged CBT Continue bupropion HCl SR 150 mg q.a.m. Denies SI/HI (3) Elevated fasting glucose: Code(s): R73.01 - Impaired fasting glucose Category: Medical Plan: Fasting glucose decrease some to 100 and A1c 5.4% We will continue to monitor (4) Subclinical hypothyroidism: Code(s): E03.8 - Other specified hypothyroidism Category: Medical Plan: TSH 8.24, T4 0.85 6 months ago The patient is asymptomatic We will recheck thyroid function soon as she can to re-evaluate (5) Obesity (BMI 30-39.9): Code(s): E66.9 - Obesity, unspecified Category: Medical Plan: Encouraged to exercise for at least 30 minutes a day/5 days a week Healthy eating discussed. Encouraged to eat fruits/vegetables, protein-fish/baked chicken, and to avoid salty/fried foods, sweets, caffeine and carbohydrates. Encouraged to increase water intake 6-8 glasses a day (6) Vitamin D deficiency: Code(s): E55.9 - Vitamin D deficiency, unspecified Category: Medical Plan: Continue cholecalciferol 50 mcg daily. Patient had started this medication after these labs were drawn. Repeat vitamin-D was ordered today to be checked as soon as she can (7) Lower back pain: Code(s): M54.50 - Low back pain, unspecified Category: Medical Qualifiers: Back pain laterality: left Chronicity: acute Sciatica presence: without sciatica Qualified Code(s): M54.50 - Low back pain, unspecified Plan: Patient reports that her lower back pain started after returning from [place] where she did a lot of walking up and stairs. The pain is in the lower back and radiates in the in her left groin. The pain in the in her left groin subsides with pressure to a specific area. Patient was evaluated in the emergency room in an ultrasound was done to rule out blood clots and this showed a benign lymph node. Explained to the patient that this might be pressing on a nerve and causing her pain in her groin. We will try the patient on prednisone tapered to help with inflammation. Continue ibuprofen and tylenol OTC. The patient to contact if the pain worsens or persists Orders: Orders TSH reflex Free T4 Today E03.8 - Other specified hypothyroidism, E55.9 - Vitamin D deficiency, unspecified, E66.9 - Obesity, unspecified, E78.00 - Pure hypercholesterolemia, unspecified, F41.9 - Anxiety disorder, unspecified, R73.01 - Impaired fasting glucose, R79.89 - Other specified abnormal findings of blood chemistry Free T4 (Free Thyroxine) Today E03.8 - Other specified hypothyroidism, E55.9 - Vitamin D deficiency, unspecified, E66.9 - Obesity, unspecified, E78.00 - Pure hypercholesterolemia, unspecified, F41.9 - Anxiety disorder, unspecified, R73.01 - Impaired fasting glucose, R79.89 - Other specified abnormal findings of blood chemistry Vitamin D 25-OH Total Today E03.8 - Other specified hypothyroidism, E55.9 - Vitamin D deficiency, unspecified, E66.9 - Obesity, unspecified, E78.00 - Pure hypercholesterolemia, unspecified, F41.9 - Anxiety disorder, unspecified, R73.01 - Impaired fasting glucose, R79.89 - Other specified abnormal findings of blood chemistry Lipid Panel Today E03.8 - Other specified hypothyroidism, E55.9 - Vitamin D deficiency, unspecified, E66.9 - Obesity, unspecified, E78.00 - Pure hypercholesterolemia, unspecified, F41.9 - Anxiety disorder, unspecified, R73.01 - Impaired fasting glucose, R79.89 - Other specified abnormal findings of blood chemistry Complete Blood Count Auto Diff Today E03.8 - Other specified hypothyroidism, E55.9 - Vitamin D deficiency, unspecified, E66.9 - Obesity, unspecified, E78.00 - Pure hypercholesterolemia, unspecified, F41.9 - Anxiety disorder, unspecified, R73.01 - Impaired fasting glucose, R79.89 - Other specified abnormal findings of blood chemistry Comprehensive [place]. Panel Fast Today E03.8 - Other specified hypothyroidism, E55.9 - Vitamin D deficiency, unspecified, E66.9 - Obesity, unspecified, E78.00 - Pure hypercholesterolemia, unspecified, F41.9 - Anxiety disorder, unspecified, R73.01 - Impaired fasting glucose, R79.89 - Other specified abnormal findings of blood chemistry UA CC w/rflx Micro + Cult Today E03.8 - Other specified hypothyroidism, E55.9 - Vitamin D deficiency, unspecified, E66.9 - Obesity, unspecified, E78.00 - Pure hypercholesterolemia, unspecified, F41.9 - Anxiety disorder, unspecified, R73.01 - Impaired fasting glucose, R79.89 - Other specified abnormal findings of blood chemistry Medications: New prednisone see taper instructions take 4 tabs x2 days, then 3 tabs x 2 days, then 2 tabs x 2 days, then 1 tab x 2 days =20 tabs for 8 days 10 mg PO DIRECTED 20 tabs 0RF
== END 2025-03-24 09:01 | disposition home or self-care (01) ==
LOC: HO.HMCH 08:19
PROVIDERS: PCP Internal Medicine
DX: E78.00 Pure hypercholesterolemia, unspecified (principal); F41.9 Anxiety disorder, unspecified; E66.9 Obesity, unspecified; Z68.35 Body mass index [BMI] 35.0-35.9, adult; R73.01 Impaired fasting glucose; E03.8 Other specified hypothyroidism; E55.9 Vitamin D deficiency, unspecified; M54.50 Low back pain, unspecified

== ENCOUNTER → 2025-03-24 08:19 | Outpatient (BNVA) | payer OTHER, SELFPAY | PROVIDERS: PCP Internal Medicine | DX: R73.01 Impaired fasting glucose (principal); E78.00 Pure hypercholesterolemia, unspecified; F41.9 Anxiety disorder, unspecified; E03.8 Other specified hypothyroidism; E66.9 Obesity, unspecified; E55.9 Vitamin D deficiency, unspecified; M54.50 Low back pain, unspecified; Z68.36 Body mass index [BMI] 36.0-36.9, adult | CPT/HCPCS: 96127 ==

== ENCOUNTER 2025-07-18 08:15 | Outpatient (AMB) | payer OTHER, SELFPAY ==
--- OUTSIDE RECORDS SUMMARY | 2025-07-18 08:22 | XMS_ITS | Clinical Summary ---
Author Organization [facility] Address [address] [place] [address] Care Team Providers Care Supervisor Housecleaner Name Role Phone Jadon Quinteros MD Primary Care Provider [phone] Surgical History Surgery Date Site/Laterality Comments CHOLECYSTECTOMY PROCEDURE: VT CHOLECYSTECTOMY Medical History Medical History Date Comments [...] drink = 0.6 oz pur e alcohol) Comments Unknown Sex and Gender Information Value Date Recorded Sex Assigned at Not on file Legal Sex Female 11:36 PM EST Gender Identity Not on file Sexual Orientation Not on file Obstetrics History Plan of Treatment Health Maintenance Due Date Last Done Comments Cervical Cancer Screening: P ap Smear 1995 Hepatitis B Vaccines (3 of 3 - 19+ 3-dose series) 10/29/2008 06/30/2008, 04/28/2008 Breast Cancer Screening 08/14/2021 08/14/20 19, 11/28/2016, 11/03/2016 Pneumococcal Vaccine: 50+ Years (1 of 1 - PCV) 2024 Zoster Vaccines (1 of 2) 2024 Depression Screening 09/04/2024 COVID-19 Vaccine (1 - 2024-2 6 season) 2025 Influenza Vaccine (#1) 2025 DTaP,Tdap,and Td Vaccines (4 - Td or Tdap) 08/07/2029 08/07/2019, 04/28/2008, 09/04/2003 RSV Immunization Adult Patients (1 - 1-dose 75+ series) 2049 HIB Vaccines Aged Out No longer eligi [...] patient's age to complete this topic Meningococcal B Vaccine Aged Out No l onger eligible based on patient's age to complete [...] nodules seen on baseline mammogram of 11/03/2016. Patient underwent bilateral diagnostic mammogram and bilateral breast ultrasound on 11/28/2016. Patient never returned for the recommended bilateral mammogram and left breast ultrasound. Full field digital mammography, reviewed with CAD and compared to previous. The breasts are composed of fatty and fibroglandular tissue. No suspicious mass, architectural distortion or suspicious calcifications are identified. The bilateral asymmetric densities seen on the previous study are not significantly changed. IMPRESSION: : No mammographic evidence of malignancy. Stable bilateral focal asymmetries. Follow-up ultrasound was felt not to be [...] cancer risk category High (>20%) Vonda RUIZ IMChayito BI PROCEDURES Final Resul t from Last 3 Months or Most Recently Relevant to Health Maintenance Care Teams Supervisor Housecleaner Relationship Specialty Start Date End Date Jadon Quinteros MD [address] [place] [address] PCP - General Internal Medicine 10/07/15
--- OUTSIDE RECORDS SUMMARY | 2025-07-18 08:22 | XMS_ITS | Continuity of Care Document ---
Author Organization [employer] Address [address] [address] Insurance Providers Payer Plan Claims Address Claims Phone Policy Number Group Number Relation Employer Guarantor Name Guarantor Guarantor Address Guarantor [facility] [place] tel:[phone] [id number] Problems Condition ICD9 code ICD10 code SNOMED code Start Date End Date S tatus Encounter for screening for other metabolic disorders Z13.228 Results No Results Allergies, adverse reactions, alerts No known allergies and adverse reactions Medications No administered medications reported Vital Signs No vital signs reported Social History No smoking Hx information available
--- NOTE | 2025-07-18 09:09 | AM.OFFVISNUR ---
Intake Visit Reasons: UroD Allergies No Known Allergies Allergy (Verified 03/24/25 08:30) Office Procedures Urodynamic Studies Consent Discussed risk and benefit or proposed procedure with the patient. Information consent for procedure given to the patient. Discussed technical aspects, risks, benefits and alternatives in full. Addressed all of the patient's questions and concerns regarding the procedure. The patient demonstrated knowledge and understanding. They wish to proceed with this procedure. Preparation The patient was prepped in the usual manner. A disc inspector was present and in the room. Genitalia was prepped with betadine solution in a sterile manner. Procedure Complex Uroflow Complex uroflow performed by: Reij Mitchell Maximum urinary flow rate (mL/second): 11 Voiding time (seconds): 100 seconds Voided volume (mL): 55ml Residual urine (mL): 15ml Cystometrogram ? Vaginal/rectal catheter type: Vaginal First sensation at (mL): 36 mL First desire at (mL): 74 mL Strong desire to void occurred at (mL): 237 mL Strong desire detrusor pressure (cm H2O): 4.7 Maximum Capacity (mL): 271 mL Voiding Summary Voided with max detrusor pressure of (cm H2O):95 Maximum flow rate (mL/second): 17mL/s Voided volume (mL): ? 185 Calculated PVR: approx 80 mL Stress Testing Stress Test at mL: 154 ml leak Absent with Valsalva, Present leak with cough DO Dry: N/A DO Wet: N/A Prep: The patient was prepped in the usual manner. A disc inspector was present and in the room. Genitalia was prepped with betadine solution in a sterile manner. 40003-Euwqwhswuoedba w/ CHOPPER GUN OPERATOR 77651-Xekstsy-Ewpemqlsdybu 40406-Ctiw/Urinary Muscle Study 59197-Hzayq-Zvjfgoypl Pressure Test Procedure code (CPT) selection complete Office Meds nitrofurantoin monohydrate/macrocrystals 100 mg capsule Performing Provider: Reji Mitchell MD [facility] Administered by: Sabine Hu RN on 07/18/25 09:09 Dose Route Admin Location Dispensed Lot Number Expiration Date NDC Flaring Machine Operator 100 mg PO 1 cap Assessment & Plan Assessment & Plan Orders: Orders AMB Urodynamics Studies Today N39.3 - Stress incontinence (female) (male) Coding CPT Codes Urodynamic Studies - CPT: 51558-Onctslovsutjuu w/ CHOPPER GUN OPERATOR ([id number]) Urodynamic Studies - CPT: 03679-Hyswolh-Iwczjsgbsznf ([id number]) Urodynamic Studies - CPT: 02941-Sfsw/Urinary Muscle Study ([id number]) Urodynamic Studies - CPT: 42270-Vhqjp-Lyijzefvc Pressure Test ([id number])
--- NOTE | 2025-07-18 09:31 | MHC.OFFVIS ---
Intake Visit Reasons: UroD Allergies No Known Allergies Allergy (Verified 03/24/25 08:30) PFSH Medical History Anxiety Stress incontinence Obesity (BMI 30-39.9) Vitamin D deficiency Ex-smoker Tubular adenoma of colon Impaired fasting glucose Elevated TSH Pure hypercholesterolemia Iron deficiency anemia Surgical History Hx of colonoscopy Hx of cholecystectomy Family History Mother Blood clotting disorder Breast cancer Father Prostate cancer Brother No problems noted. Sister No problems noted. Social History Housing: Apartment Alcohol intake: current Alcohol intake frequency: a few times a week Alcohol type: hard liquor Patient Tobacco Use Status: Former Tobacco user Cigarette Packs Per Day: 1 e-Cigarette/Vaping Use: Never Used service: No Current occupational status: employed Cognitive needs: No Hearing needs: No Vision needs: No Female Reproductive History Menstrual Age of Menarche: 10 Office Procedures Urodynamic Studies Consent Discussed risk and benefit or proposed procedure with the patient. Information consent for procedure given to the patient. Discussed technical aspects, risks, benefits and alternatives in full. Addressed all of the patient's questions and concerns regarding the procedure. The patient demonstrated knowledge and understanding. They wish to proceed with this procedure. Preparation The patient was prepped in the usual manner. A frame gate mortiser operator was present and in the room. Genitalia was prepped with betadine solution in a sterile manner. Procedure Complex Uroflow Complex uroflow performed by: Reji Mitchell Maximum urinary flow rate (mL/second): 11 Voiding time (seconds): 100 seconds Voided volume (mL): 55ml Residual urine (mL): 15ml Cystometrogram ? Vaginal/rectal catheter type: Vaginal First sensation at (mL): 36 mL First desire at (mL): 74 mL Strong desire to void occurred at (mL): 237 mL Strong desire detrusor pressure (cm H2O): 4.7 Maximum Capacity (mL): 271 mL Voiding Summary Voided with max detrusor pressure of (cm H2O):95 Maximum flow rate (mL/second): 17mL/s Voided volume (mL): ? 185 Calculated PVR: approx 80 mL Stress Testing Stress Test at mL: 154 ml leak Absent with Valsalva, Present leak with cough DO Dry: N/A DO Wet: N/A Prep: The patient was prepped in the usual manner. A frame gate mortiser operator was present and in the room. Genitalia was prepped with betadine solution in a sterile manner. 59607-Vhvhbgoexgdcyd w/ EXHIBITION SPECIALIST 53212-Ymbhenh-Yhhjguszmfyk 07781-Ncrh/Urinary Muscle Study 51744-Tbtee-Ofvikczau Pressure Test Procedure code (CPT) selection complete Office Meds nitrofurantoin monohydrate/macrocrystals 100 mg capsule Performing Provider: Reji Mitchell MD [facility] Administered by: Sabine Hu RN on 07/18/25 09:09 Dose Route Admin Location Dispensed Lot Number Expiration Date NDC News Editor 100 mg PO 1 cap Assessment & Plan Assessment & Plan Orders: Orders AMB Urodynamics Studies Today N39.3 - Stress incontinence (female) (male) Coding CPT Codes Urodynamic Studies - CPT: 91304-Yxgfbaiawddsdq w/ EXHIBITION SPECIALIST ([id number]) Urodynamic Studies - CPT: 41771-Levqkcb-Zdthhktnqfvj ([id number]) Urodynamic Studies - CPT: 07324-Jasn/Urinary Muscle Study ([id number]) Urodynamic Studies - CPT: 97075-Nrjvp-Uefthphpm Pressure Test ([id number])
== END 2025-07-18 10:16 | disposition home or self-care (01) ==
LOC: HO.HUSH 08:16
PROVIDERS: PCP Internal Medicine; Visit Provider Urology
DX: N39.3 Stress incontinence (female) (male) (principal); Z13.9 Encounter for screening, unspecified
CPT/HCPCS: 51728; 51741; 51784; 51797

== ENCOUNTER → 2025-07-18 08:15 | Outpatient (BNVA) | payer OTHER, SELFPAY | PROVIDERS: PCP Internal Medicine; Visit Provider Urology | DX: N39.3 Stress incontinence (female) (male) (principal); R39.15 Urgency of urination; Z13.9 Encounter for screening, unspecified | CPT/HCPCS: 51728; 51741; 51784; 51797; 81003 ==

== ENCOUNTER 2025-08-07 07:35 | Outpatient (AMB) | payer OTHER, SELFPAY ==
--- OUTSIDE RECORDS SUMMARY | 2025-08-07 07:38 | XMS_ITS | Continuity of Care Document ---
Author Organization [employer] Address [address] [address] Insurance Providers Payer Plan Claims Address Claims Phone Policy Number Group Number Relation Employer Guarantor Name Guarantor Guarantor Address Guarantor [facility] [place] tel:[phone] [id number] Problems Condition ICD9 code ICD10 code SNOMED code Start Date End Date S tatus Encounter for screening for other metabolic disorders Z13.228 Results No Results Allergies, adverse reactions, alerts No known allergies and adverse reactions Medications No administered medications reported Vital Signs No vital signs reported Social History No smoking Hx information available
--- OUTSIDE RECORDS SUMMARY | 2025-08-07 07:38 | XMS_ITS | Clinical Summary ---
Author Organization [facility] Address [address] [place] [address] Care Team Providers Care Gas Station Clerk Name Role Phone Jadon Quinteros MD Primary Care Provider [phone] Surgical History Surgery Date Site/Laterality Comments CHOLECYSTECTOMY PROCEDURE: [place] CHOLECYSTECTOMY Medical History Medical History Date Comments [...] Recently Relevant to Health Maintenance Care Teams Gas Station Clerk Relationship Specialty Start Date End Date Jadon Quinteros MD [address] [place] [address] PCP - General Internal Medicine 10/07/15
--- OUTSIDE RECORDS SUMMARY | 2025-08-07 07:39 | XMS_ITS ---
Author Name [facility] Organization Unknown Care Team Organization Name Specialty Phone Email Start Date End Da te [facility] ([facility])
--- NOTE | 2025-08-07 07:46 | MHC.OFFVIS ---
Intake Visit Reasons: 6m/PVR/UA Intake Note: Pt presents to the office today for a 6 month follow up PVR/incontinence. Urology meds:Solifenacin Blood thinners:None PVR:228ml Punch Out Crew Member Required: No Accompanied by: Self / Same As Patient Allergies No Known Allergies Allergy (Verified 08/07/25 09:03) Medication List - Last Reconciled 08/07/25 by AMAURI Fields- bupropion HCl SR 150 mg PO QAM cholecalciferol (vitamin D3) 50 mcg PO DAILY 90 days mirabegron ER (Myrbetriq) 25 mg PO DAILY 30 days HPI Comments Details: Maria C is a very pleasant 50-year-old female patient. She has a past medical history of anxiety, stress incontinence, obesity, vitamin-D deficiency, hypercholesteremia, and iron deficiency anemia. She presents to the office today for a follow up of her lower urinary tract symptoms. In discussion with the patient today she reports to be doing and feeling well. She discusses having increased her VESIcare to 2 tablets twice a day independently. We did discuss the importance of taking medications as prescribed. She reports she has been taking 10 mg in the morning and 10 mg at HS and feels this has been more helpful. In office urinalysis results reviewed with the patient today. PVR 228 mL. We did discuss incomplete bladder emptying in the setting of OAB medications. Of note, during last office visit patient underwent in office urodynamics 07/29 at which time plan was to initiate pelvic floor therapy although other treatment options were reviewed however patient would like to proceed with pelvic floor therapy at this time. We did discuss current wait list. Information was provided. She reports mainly she experiences increased episodes of urinary urgency. Patient with a previous history of microscopic hematuria and has undergone CT urogram 06/26 that noted symmetric nephrograms. No renal mass. Symmetric urinary excretion. No filling defects in the collecting systems or ureters. The bladder with no bladder calculus or discrete bladder mass. No explanation for hematuria. No nephrolithiasis or renal mass. Normal CT urogram. She denies nocturia, hematuria, dysuria, foul smelling urine, changes to urinary stream, flank pain, fever, and or chills. She has a history of 3 vaginal births of average sized babies and somewhat long labors. We did discuss potential causes of lower urinary tract symptoms she is experiencing as well as further treatment options and risks and benefits of these treatment options. All questions were answered. She otherwise offers no other issues or concerns at this time. [facility] Medical History Anxiety Stress incontinence Obesity (BMI 30-39.9) Vitamin D deficiency Ex-smoker Tubular adenoma of colon Impaired fasting glucose Elevated TSH Pure hypercholesterolemia Iron deficiency anemia Surgical History Hx of colonoscopy Hx of cholecystectomy Family History Mother Blood clotting disorder Breast cancer Father Prostate cancer Brother No problems noted. Sister No problems noted. Social History Housing: Apartment Alcohol intake: current Alcohol intake frequency: a few times a week Alcohol type: hard liquor Patient Tobacco Use Status: Former Tobacco user Cigarette Packs Per Day: 1 e-Cigarette/Vaping Use: Never Used service: No Current occupational status: employed Cognitive needs: No Hearing needs: No Vision needs: No Female Reproductive History Menstrual Age of Menarche: 10 Review of Systems Const All systems reviewed & are unremarkable except as noted in HPI and below Physical Exam Const General: cooperative, healthy appearing, comfortable, no acute distress, well developed, alert and awake Orientation/consciousness: patient oriented x3 Limitations: no limitations HEENT Head: Yes normal to inspection, Yes normocephalic and Yes atraumatic Ears: hearing grossly normal bilaterally Eyes General: appearance normal, both eyes and all related structures Neck Neck: Yes normal visual inspection and Yes trachea midline Chest Chest palpation & inspection: normal inspection of the chest Resp Effort & Inspection: normal respiratory effort and able to speak in complete sentences Cardio Rate: regular rate GI Inspection: Yes normal to inspection General: Yes no CVA tenderness Back/Spine/Pelvis Back: no CVA tenderness Skin General skin exam: no rashes or lesions noted Neuro General: patient oriented x3 Extrem General: Yes normal to inspection Psych Appearance: grossly normal and well kempt Mental Status: mental status grossly normal Speech and movement: Normal speech and movement present and Clear speech present Affect: normal affect Attitude: cooperative Thought process: Normal thought process present Thought content: Normal thought content present Insight: Good insight present (Psych) Judgement: Good judgement present (Psych) Office Procedures Post Void Residual Post Residual Void Post Void Residual (PVR): 228 07172-Mgcd Void Residual by ultrasound Results AMB Urinalysis, Automated UA Leukoctes 0 Brando/uL Last Edit by Ernestine Tello [facility] on 08/07/25 07:49 UA Nitrite Negative Last Edit by [facility], [facility] on 08/07/25 07:49 UA Urobilinogen 0.2 mg/dL Last Edit by [facility], [facility] on 08/07/25 07:49 UA Protein 0 mg/dL Last Edit by [facility], [facility] on 08/07/25 07:49 UA pH 6.0 Last Edit by [facility], [facility] on 08/07/25 07:49 UA Blood 0 Navi/uL Last Edit by [facility], [facility] on 08/07/25 07:49 UA Specific [place] 1.020 Last Edit by Ernestine Omer, [facility] on 08/07/25 07:49 UA Ketone Negative Last Edit by [facility], [facility] on 08/07/25 07:49 UA Bilirubin 0 mg/dL Last Edit by [facility], [facility] on 08/07/25 07:49 UA Glucose 0 mg/dL Last Edit by [facility], [facility] on 08/07/25 07:49 Results Reviewed Results Reviewed: Laboratory Last Values Urine pH (Auto) 6.0 08/07/25 07:48 Specific [place] (Auto) 1.020 08/07/25 07:48 Urine Protein (Auto) 0 mg/dL 08/07/25 07:48 Glucose (UA)(Auto) 0 mg/dL 08/07/25 07:48 Urine Ketones (Auto) Negative 08/07/25 07:48 Urine Blood (Auto) 0 Navi/uL 08/07/25 07:48 Urine Nitrite (Auto) Negative 08/07/25 07:48 Urine Bilirubin (Auto) 0 mg/dL 08/07/25 07:48 Urine Urobilinogen (Auto) 0.2 mg/dL 08/07/25 07:48 Leukocyte Esterase (Auto) 0 Brando/uL 08/07/25 07:48 Assessment & Plan Assessment & Plan (1) Stress incontinence: Code(s): N39.3 - Stress incontinence (female) (male) Category: Medical (2) Incomplete bladder emptying: Code(s): R33.9 - Retention of urine, unspecified Category: Medical (3) Microscopic hematuria: Code(s): R31.29 - Other microscopic hematuria Category: Medical Plan In office urinalysis results reviewed the patient today; as noted above. PVR today 228 mL. We discussed importance of taking medications as prescribed. Stop VESIcare. Start Myrbetriq as discussed and prescribed. Follow-up with nursing in 2 weeks for PVR; nursing to make provider aware of PVR for potential change in treatment plan. Referral submitted for pelvic floor therapy. All questions were answered. Follow-up with provider in 3-4 months status post completion of pelvic floor therapy; or sooner with any issues, concerns, and or questions. Orders: Orders AMB Urinalysis Automated Today N39.3 - Stress incontinence (female) (male) AMB Post Void Residual by ultrasound Today N40.1 - Benign prostatic hyperplasia with lower urinary tract symptoms PT Pelvic Floor Evaluation Today N39.3 - Stress incontinence (female) (male), R33.9 - Retention of urine, unspecified Medications: New mirabegron ER (Myrbetriq) 25 mg PO DAILY 30 tabs 3RF 30 days N30.10 - Interstitial cystitis (chronic) without hematuria, N32.81 - Overactive bladder, R35.1 - Nocturia, R39.15 - Urgency of urination Discontinued solifenacin Discontinued Reason: Doctor's Order 5 mg PO BID 180 tabs 3RF 90 days N39.3 - Stress incontinence (female) (male) Patient Instructions: The patient had an opportunity to ask questions regarding the treatment plan. All questions were answered. Physical exam, labs, and imaging were discussed and reviewed in detail. As well as risks, benefits, and discussion of treatment choices. No major barriers to understanding were identified. The patient expressed understanding and agreement with the above treatment plan. The patient was made aware they should contact our office by phone for worsening of their current condition, the appearance of new symptoms, or with any questions or concerns. Compliance is encouraged with any medications and follow up testing that is ordered. It is a privilege to be allowed the opportunity to participate in? your urological care.? Again, if you have any questions or concerns If you have any questions or concerns please do not hesitate to contact me. The office is [phone]. This note is constructed using voice recognition software. While every effort has been made to ensure accuracy metal moulder errors may have been included. Yours sincerely, AMAURI Fields-COREEN Coding Level of Care Code Est Pt Level 4 (63530) Diagnoses Stress incontinence N39.3 Incomplete bladder emptying R33.9 Microscopic hematuria R31.29 CPT Codes Post Residual Void - PVR CPT Code: 05782-Quxd Void Residual by ultrasound ([id number])
== END 2025-08-07 08:24 | disposition home or self-care (01) ==
LOC: HO.HUSH 07:36
PROVIDERS: PCP Internal Medicine; Visit Provider Nurse Practitioner Family
DX: N39.3 Stress incontinence (female) (male) (principal); R33.9 Retention of urine, unspecified; R31.29 Other microscopic hematuria
CPT/HCPCS: 99214

== ENCOUNTER → 2025-08-07 07:35 | Outpatient (BNVA) | payer OTHER, SELFPAY | PROVIDERS: PCP Internal Medicine; Visit Provider Nurse Practitioner Family | DX: N39.3 Stress incontinence (female) (male) (principal); R33.9 Retention of urine, unspecified; R31.29 Other microscopic hematuria | CPT/HCPCS: 51798; 81003 ==